=== PATIENT | male | born 1950 | race Caucasian/White ===

== ENCOUNTER 2017-03-27 09:24 | Inpatient (IN) | payer MEDICARE, BC, SELFPAY ==
[2017-03-27] VITALS (8 sets, daily range): BP systolic 93–128; BP diastolic 42–70; PULSE 60–76; RESP 16–18; TEMP -7.7–37.2; O2SAT 94–100; BMI 27.3; BMI 23.7; BMI 23.8
--- NOTE | 2017-03-27 10:07 | PC.NURSE ---
Triage nurse came to get me from room due to pt condition. While triaging, difficult to arouse, moon, BP 68/24. Pt seated in w/c and is difficult to arouse. Accompanied by I presume his /significant other. Pt immediately taken across to ER by Christopher [facility] RN as I call report to Shira DESIGN MANAGER. Aware pt needs immediate medical attention upon arrival.
--- NOTE | 2017-03-27 10:11 | XR_ITS ---
XR chest portable HISTORY: ITS.REASON: WEAKNESS ORDERING PHYSICIAN: Akbar Booker PATIENT AGE: 66 years COMPARISON: 12/02/2016 FINDINGS: Cardiac pacemaker device remains in place. No evidence of CHF.. Old granulomatous disease. Old right-sided rib fractures. No lobar consolidation or collapse. IMPRESSION: No change with no acute finding.
--- NOTE | 2017-03-27 10:11 | CT_ITS ---
CT head/brain wo con HISTORY: Lethargic, weakness ITS.REASON: WEAKNESS ORDERING PHYSICIAN: Akbar Booker PATIENT AGE: 66 years COMPARISON: 03/03/2016 TECHNIQUE: Axial images obtained without contrast. Brain and bone windows reviewed. FINDINGS: There are encephalomalacia changes of the left frontal, anterior temporal, and parietal lobe consistent with an old infarction similar to the previous exam. No midline shift or intracranial hemorrhage is evident. There is dilatation of the left lateral ventricle felt to be related to the generalized volume loss. 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 IMPRESSION: 1. No acute intracranial findings. 2. Postsurgical changes on the left with prior aneurysm clipping and encephalomalacic changes in the left cerebrum as described above
[2017-03-27 10:34] LABS: Basophils % 0.5 % (0.1-2.0); Eosinophils # 0.3 K/mm3 (0.0-0.4); Eosinophils % 3.4 % (0.1-12.0); Hematocrit 27.4 % (42.0-52.0); Hemoglobin 9.1 g/dL (14.1-18.0); Lymphocytes # 1.2 K/mm3 (0.7-4.5); Lymphocytes % 16.3 K/mm3 (10-50); Mean Corpuscular HGB Conc 33.1 g/dL (31.8-35.4); Mean Corpuscular Volume 93.6 fl (80-94); Mean Platelet Volume 7.8 fl (7.4-10.4); Monocytes # 0.5 K/mm3 (0.1-1.0); Monocytes % 7.3 % (1.7-9.3); Neutrophils # 5.3 K/mm3 (1.8-7.8); Neutrophils % 72.4 % (37.0-80.0); Platelet Count 304 K/mm3 (142-424); Red Blood Count 2.92 M/mm3 (4.60-6.20); Red Cell Distribution Width 14.9 % (11.5-17.5); White Blood Count 7.3 K/mm3 (4.8-10.8)
[2017-03-27 10:39] LABS: POC Glucose,Bedside 146 mg/dL
[2017-03-27 11:23] LABS: Alanine Aminotransferase 16 U/L (12-78); Albumin Level 3.4 gm/dL (3.4-5.0); Albumin/Globulin Ratio 0.9 (1.1-1.8); Alkaline Phosphatase 108 U/L (46-116); Anion Gap 12.2 mEq/L (5-15); Bilirubin,Total 0.2 mg/dL (0.2-1.0); Blood Urea Nitrogen 9 mg/dL (7-18); Calcium 8.9 mg/dL (8.5-10.1); Carbon Dioxide 24 mmol/L (21.0-32.0); Chloride 91 mmol/L (98-107); Creatinine Clearance Estimated 71 mL/min (0-300); Estimated Glomerular Filt Rate 67 ml/min (>60); GFR (African American) 81 ML/MIN (>60); Globulin 3.7 gm/dl (1.3-3.2); Glucose 139 mg/dL (74-106); Sodium 123 mmol/L (136-145); Total Protein,Serum 7.1 gm/dL (6.4-8.2)
[2017-03-27 11:24] LABS: Aspartate Amino Transferase 20 U/L (15-37); Potassium 4.2 mmoL/L (3.5-5.1)
[2017-03-27 11:25] LABS: Creatine Kinase 56 U/L (39-308)
--- NOTE | 2017-03-27 11:25 | HMH.EDWEAK ---
ED Disposition Clinical Impression: Hyponatremia, CVA (cerebrovascular accident), Chronic anemia Disposition: Still a Patient Condition on Discharge: Fair Referrals: Vargas Hurt MD [Staff Physician] - - Critical Care Critical Care Time: No Attestation: On 03/27/17, the high probability of a clinically significant, sudden or life threatening deterioration of the following system(s) required my full and direct attention, intervention and personal management. The time I documented below is in addition to time spent performing reported procedures but includes the following listed in this critical care notation. Medical Decision Making - Medical Records Medical records reviewed: Yes: I reviewed the patient's medical records. Vital Signs: 03/27/17 10:21 03/27/17 10:41 Temperature 98.4 F 98.9 F Temperature Source Oral Temporal Artery Scan Pulse Rate [Right Brachial] 67 60 Respiratory Rate 18 18 Blood Pressure [Right Arm] 93/42 106/57 Blood Pressure Mean [Right Arm] 59 73 Blood Pressure Source [Right Arm] Automatic Cuff Blood Pressure Position [Right Arm] Supine 02 Sat by Pulse Oximetry 94 L 99 Oxygen Delivery Method Room Air Room Air - Lab Data Lab Results 03/27/17 10:08: POC Glucose 146 03/27/17 10:20: WBC 7.3, RBC 2.92 L, Hgb 9.1 L, Hct 27.4 L, MCV 93.6, MCH 31.0, MCHC 33.1, RDW 14.9, Plt Count 304, MPV 7.8, Neut % (Auto) 72.4, Lymph % (Auto) 16.3, [place] % (Auto) 7.3, Eos % (Auto) 3.4, Baso % (Auto) 0.5, Neut # (Auto) 5.3, Lymph # (Auto) 1.2, [place] # (Auto) 0.5, Eos # (Auto) 0.3, Baso # (Auto) 0.0 03/27/17 10:20: Sodium 123 L, Potassium 4.2, Chloride 91 L, Carbon Dioxide 24, Anion Gap 12.2, BUN 9, Creatinine 1.10, Estimated Creat Clear 71, Estimated GFR 67, Est GFR ( Amer) 81, Glucose 139 H, Calcium 8.9, Total Bilirubin 0.2, AST 20, ALT 16, Alkaline Phosphatase 108, Total Protein 7.1, Albumin 3.4, Globulin 3.7 H, Albumin/Globulin Ratio 0.9 L, Phenobarbital 18.6 03/27/17 10:20: Total Creatine Kinase 56, CK-MB (CK-2) 0.9, CK-MB (CK-2) Rel Index 1.6, Troponin I < 0.02 03/27/17 11:30: Influenza Type A Ag Negative, Influenza Type B Ag Negative 03/27/17 11:30: Group A Strep Rapid Negative Result diagrams: 03/27/17 10:20 03/27/17 10:20 Orders (Tests/Meds): ED MEDICATIONS Discontinued Medications Generic Name Dose Route Start Last Admin Trade Name Freq PRN Reason Stop Dose Admin Aspirin 324 mg 03/27/17 11:26 03/27/17 11:28 Aspirin 81mg Chewable Tablet PO 03/27/17 11:27 324 mg ONCE ONE Administration Sodium Chloride 1,000 mls @ 999 mls/hr 03/27/17 10:15 03/27/17 10:40 Sod Chloride 0.9% 1000ml Bag IV 03/27/17 11:15 999 mls/hr .Q1H1M CHANG Administration ORDERS Category Date Time Status POC Glucose,Bedside Stat Lab 03/27/17 10:11 Ordered Urinalysis and Microscopic Stat Lab 03/27/17 10:34 Ordered Strep Screen Confirmation Stat Micro 03/27/17 11:30 Received - Radiology Data #1 Image(s): Chest Image Reviewed: Yes I have reviewed radiologist's interpretation Preliminary Findings: Normal/NAD - CT Data CT Scan: Head Time Received: 12:[address] Reviewed: Yes: I have viewed the radiologist's interpretation - ECG Data Tracing #1 Normal sinus rhythm at 60/min versions and the lateral lead which is unchanged from prior EKG on June 09, 2014. I reviewed the case and the EKG with Dr. Smith. He did not believe that he needs futher work up at this point. ECG initial impression date: 03/27/17 - Mirza Inquiry Pt receiving controlled substance: No Mirza was queried for this patient: No Medical Decision Making Narrative: I discussed Babak EKG with Dr. Smith who did not feel that there is an acute finding. Looks stable from the previous one was done in 2014. Upon review of his labs his sodium was 123 and hemoglobin is 9. He will need to be admitted for IV fluids normal saline. [facility] Contacted
[2017-03-27 11:26] LABS: CKMB Relative Index 1.6 U/L (0-4.0); Creatine Kinase MB 0.9 mg/ml (0.0-3.6); Troponin I < 0.02 ng/ml (0.00-0.06)
--- NOTE | 2017-03-27 11:33 | ED_ITS ---
ED Disposition Clinical Impression: Hyponatremia, CVA (cerebrovascular accident), Chronic anemia Disposition: Still a Patient Condition on Discharge: Fair Referrals: Vargas Hurt MD [Staff Physician] - - Critical Care Critical Care Time: No Attestation: On 03/27/17, the high probability of a clinically significant, sudden or life threatening deterioration of the following system(s) required my full and direct attention, intervention and personal management. The time I documented below is in addition to time spent performing reported procedures but includes the following listed in this critical care notation. Medical Decision Making - Medical Records Medical records reviewed: Yes: I reviewed the patient's medical records. Vital Signs: 03/27/17 10:21 03/27/17 10:41 Temperature 98.4 F 98.9 F Temperature Source Oral Temporal Artery Scan Pulse Rate [Right Brachial] 67 60 Respiratory Rate 18 18 Blood Pressure [Right Arm] 93/42 106/57 Blood Pressure Mean [Right Arm] 59 73 Blood Pressure Source [Right Arm] Automatic Cuff Blood Pressure Position [Right Arm] Supine 02 Sat by Pulse Oximetry 94 L 99 Oxygen Delivery Method Room Air Room Air - Lab Data Lab Results 03/27/17 10:08: POC Glucose 146 03/27/17 10:20: WBC 7.3, RBC 2.92 L, Hgb 9.1 L, Hct 27.4 L, MCV 93.6, MCH 31.0, MCHC 33.1, RDW 14.9, Plt Count 304, MPV 7.8, Neut % (Auto) 72.4, Lymph % (Auto) 16.3, [place] % (Auto) 7.3, Eos % (Auto) 3.4, Baso % (Auto) 0.5, Neut # (Auto) 5.3 , Lymph # (Auto) 1.2, [place] # (Auto) 0.5, Eos # (Auto) 0.3, Baso # (Auto) 0.0 03/27/17 10:20: Sodium 123 L, Potassium 4.2, Chloride 91 L, Carbon Dioxide 24, Anion Gap 12.2, BUN 9, Creatinine 1.10, Estimated Creat Clear 71, Estimated GFR 67, Est GFR ( Amer) 81, Glucose 139 H, Calcium 8.9, Total Bilirubin 0.2, AST 20, ALT 16, Alkaline Phosphatase 108, Total Protein 7.1, Albumin 3.4, Globulin 3.7 H, Albumin/Globulin Ratio 0.9 L, Phenobarbital 18.6 03/27/17 10:20: Total Creatine Kinase 56, CK-MB (CK-2) 0.9, CK-MB (CK-2) Rel Index 1.6, Troponin I < 0.02 03/27/17 11:30: Influenza Type A Ag Negative, Influenza Type B Ag Negative 03/27/17 11:30: Group A Strep Rapid Negative Result diagrams: 03/27/17 10:20 03/27/17 10:20 Orders (Tests/Meds): ED MEDICATIONS Discontinued Medications Generic Name Dose Route Start Last Admin Trade Name Freq PRN Reason Stop Dose Admin Aspirin 324 mg 03/27/17 11:26 03/27/17 11:28 Aspirin 81mg Chewable Tablet PO 03/27/17 11:27 324 mg ONCE ONE Administration Sodium Chloride 1,000 mls @ 999 mls/hr 03/27/17 10:15 03/27/17 10:40 Sod Chloride 0.9% 1000ml Bag IV 03/27/17 11:15 999 mls/hr .Q1H1M CHANG Administration ORDERS Category Date Time Status POC Glucose,Bedside Stat Lab 03/27/17 10:11 Ordered Urinalysis and Microscopic Stat Lab 03/27/17 10:34 Ordered Strep Screen Confirmation Stat Micro 03/27/17 11:30 Received - Radiology Data #1 Image(s): Chest Image Reviewed: Yes I have reviewed radiologist's interpretation Preliminary Findings: Normal/NAD - CT Data CT Scan: Head Time Received: 12:[address] Reviewed: Yes: I have viewed the radiologist's interpretation - ECG Data Tracing #1 Normal sinus rhythm at 60/min versions and the lateral lead which is unchanged from prior EKG on
[2017-03-27 11:48] LABS: Strep Scrn Group A (Rapid) Negative (Negative)
--- NOTE | 2017-03-27 12:43 | PC.NURSE ---
CALLED AND SPOKE WITH BED CONTROL. WAS ADVISED THAT SHE WILL CALL US BACK WHEN SHE KNOWS SOMETHING.
--- NOTE | 2017-03-27 12:50 | PC.NURSE ---
Spoke to Emelia and Maria E at the [facility] in [place]. No beds available at this time.
--- NOTE | 2017-03-27 13:09 | PC.NURSE ---
co states no bed availability at this time.
--- NOTE | 2017-03-27 13:47 | PC.NURSE ---
REPORT GIVEN TO GIOVANNA LANDAVERDE. ASSISTED UP TO 2ND FLOOR PER [facility].
[2017-03-27 14:37] LABS: Troponin I < 0.02 ng/ml (0.00-0.06)
--- NOTE | 2017-03-27 15:34 | HMH.HP ---
*Admission Date: 03/27/17 <Jen Bennett 03/27/17 16:59> *Chief complaint: weakness <Jen Bennett 03/27/17 16:59> *History of present illness: 66 years old white male , he is status post a on the right hemiparesis, in addition to the pacemaker placement. The caregiver went to check on him at this morning and he was complaining of chills and weakness. He got dressed and went to the urgent treatment care he was directed to the ED for evalution. In the ED he was alert oriented ?3 provided history. He complained of body aches and chills, he thinks he has the flu. He denied having chest pain palpitations shortness of breath nausea or vomiting. <Jen Bennett 03/27/17 16:59> [facility] History Medical History: Reports:: Atherosclerotic Heart Disease, Cancer, Cardiomyopathy, Congestive Heart Failure, Chronic Obstructive Pulmonary Disease (COPD), Coronary Artery Disease, Cerebrovascular Accident, Gastroesophageal Reflux Disease(GERD), Gastrointestinal Bleed, Hepatitis (C), Hyperlipidemia, Hypertension, Internal Pacemaker, Lung Disease, Kidney Stones, Myocardial Infarction, Renal Insufficiency, Seizures Denies:: Diabetes Mellitus Type 1, Diabetes Mellitus Type 2 <Jen Bennett 03/27/17 18:02> Other Surgeries: Yes: Appendectomy, Pacemaker <Jen Bennett 03/27/17 16:59> Comment: lung procedure; colon surgery for colon cancer <Jen Bennett 03/27/17 18:02> - *Social History Educational Level: Completed High School <Jen Bennett 03/27/17 16:59> Smoking Status: Former smoker <Jen Bennett 03/27/17 16:59> Smoking End Date: when 46 years old <Bennett,Jen 03/27/17 16:59> Alcohol Intake: never <Bennett,Jen 03/27/17 16:59> Occupational Status: disabled <Bennett,Jen 03/27/17 16:59> Household Members: caregiver <SabrinaJen 03/27/17 16:59> - Psychiatric History Expresses thoughts of harming self/others: None <Jen Bennett 03/27/17 16:59> Suicide Plan Description: No Plan <Jen Bennett 03/27/17 16:59> *Family Hx:: Diabetes <Jen Bennett 03/27/17 18:02> Review of Systems - Constitutional Denies anorexia, Denies body ache(s), Denies chills <Jen Bennett 03/27/17 18:02> - ENT Denies sore throat <Jen Bennett 03/27/17 18:02> - *Cardiovascular Denies chest pain, Denies shortness of breath, Denies leg swelling <Jen Bennett 03/27/17 18:02> - *Respiratory Denies chest congestion, Denies cough, Denies shortness of breath <Jen Bennett 03/27/17 18:02> - *Gastrointestinal Reports constipation, Denies abdominal pain, Denies nausea, Denies vomiting <Jen Bennett 03/27/17 18:02> - *Musculoskeletal Reports abnormal walking (uses a cane to walk;right hemiplegia) <Jen Bennett 03/27/17 18:02> - *Neurologic Reports abnormal walking, Reports abnormal speech, Denies frequent falls, Denies headache(s) <Jen Bennett 03/27/17 18:02> Meds Home Medications Medication Instructions Recorded Confirmed Type Ascorbic Acid [Vitamin C] 500 mg PO DAILY 03/27/17 03/27/17 History Aspirin [Aspir 81] 81 mg PO DAILY 03/27/17 03/27/17 History Carvedilol [Carvedilol 25mg Tab] 0.5 tab PO DAILY 03/27/17 03/27/17 History Cholecalciferol (Vitamin D3) 1,000 unit PO DAILY 03/27/17 03/27/17 History [Vitamin D3 1,000 Unit Cap] Ferrous Gluconate [Ferrous 324 mg PO DAILY 03/27/17 03/27/17 History Gluconate 324mg Tab] Gabapentin [Gabapentin 400mg Cap] 1 cap PO DIRECTED 03/27/17 03/27/17 History Lisinopril [Lisinopril 10mg Tab] 0.5 tab PO DAILY 03/27/17 03/27/17 History OXcarbazepine [Oxtellar Xr] 450 mg PO DAILY 03/27/17 03/27/17 History PHENobarbital [Phenobarbital] 64.8 mg PO DAILY 03/27/17 03/27/17 History Pantoprazole Sodium [Pantoprazole 40 mg PO DAILY 03/27/17 03/27/17 History 20mg Tab] Simvastatin 40 mg PO DAILY 03/27/17 03/27/17 History Zonisamide 300 mg PO HS 03/27/17 03/27/17 History <Vargas Hurt - 03/27/17 19:18> Allergies Allergy/AdvReac
--- NOTE | 2017-03-27 16:59 | P.HP_ITS ---
*Admission Date: 03/27/17 <Jen Bennett 03/27/17 16:59> *Chief complaint: weakness <Jen Bennett 03/27/17 16:59> *History of present illness: 66 years old white male , he is status post a on the right hemiparesis, in addition to the pacemaker placement. The caregiver went to check on him at this morning and he was complaining of chills and weakness. He got dressed and went to the urgent treatment care he was directed to the ED for evalution. In the ED he was alert oriented ?3 provided history. He complained of body aches and chills, he thinks he has the flu. He denied having chest pain palpitations shortness of breath nausea or vomiting. <Jen Benentt 03/27/17 16:59> [facility] History Medical History: Reports:: Atherosclerotic Heart Disease, Cancer, Cardiomyopathy , Congestive Heart Failure, Chronic Obstructive Pulmonary Disease (COPD), Coronary Artery Disease, Cerebrovascular Accident, Gastroesophageal Reflux Disease(GERD), Gastrointestinal Bleed, Hepatitis (C), Hyperlipidemia, Hypertension, Internal Pacemaker, Lung Disease, Kidney Stones, Myocardial Infarction, Renal Insufficiency, Seizures Denies:: Diabetes Mellitus Type 1, Diabetes Mellitus Type 2 <Jen Bennett 03/27/17 18:02> Other Surgeries: Yes: Appendectomy, Pacemaker <Jen Bennett 03/27/17 16:59> Comment: lung procedure; colon surgery for colon cancer <Jen Bennett 03/27 18:02> - *Social History Educational Level: Completed High School <Jen Bennett 03/27/17 16:59> Smoking Status: Former smoker <Jen Bennett 03/27/17 16:59> Smoking End Date: when 46 years old <Bennett,Jen 03/27/17 16:59> Alcohol Intake: never <Bennett,Jen 03/27/17 16:59> Occupational Status: disabled <Bennett,Jen 03/27/17 16:59> Household Members: caregiver <SabrinaJen 03/27/17 16:59> - Psychiatric History Expresses thoughts of harming self/others: None <Jen Bennett 03/27/17 16: 59> Suicide Plan Description: No Plan <Jen Bennett 03/27/17 16:59> *Family Hx:: Diabetes <Jen Bennett 03/27/17 18:02> Review of Systems - Constitutional Denies anorexia, Denies body ache(s), Denies chills <Jen Bennett 03/27/17 18:02> - ENT Denies sore throat <Jen Bennett 03/27/17 18:02> - *Cardiovascular Denies chest pain, Denies shortness of breath, Denies leg swelling <Jen Bennett 03/27/17 18:02> - *Respiratory Denies chest congestion, Denies cough, Denies shortness of breath <Jen Bennett 03/27/17 18:02> - *Gastrointestinal Reports constipation, Denies abdominal pain, Denies nausea, Denies vomiting < Jen Bennett 03/27/17 18:02> - *Musculoskeletal Reports abnormal walking (uses a cane to walk;right hemiplegia) <Jen Bennett 03/27/17 18:02> - *Neurologic Reports abnormal walking, Reports abnormal speech, Denies frequent falls, Denies headache(s) <Jen Bennett 03/27/17 18:02> Meds Home Medications Medication Instructions Recorded Confirmed Type Ascorbic Acid [Vitamin C] 500 mg PO DAILY 03/27/17 03/27/17 History Aspirin [Aspir 81] 81 mg PO DAILY 03/27/17 03/27/17 History Carvedilol [Carvedilol 25mg Tab] 0.5 tab PO DAILY 03/27/17 03/27/17 History Cholecalciferol (Vitamin D3) 1,000 unit PO DAILY 03/27/17 03/27/17 History [Vitamin D3 1,000 Unit Cap] Ferrous Gluconate [Ferrous 324 mg PO DAILY 03/27/17 03/27/17 History Gluconate 324mg Tab] Gabapentin [Gabapentin 400mg Cap] 1 cap PO DIRECTED 03/27/17 03/27/17 History Lisinopril [Lisinopril 10mg Tab] 0.5 tab PO DAILY 03/27/17 03/27/17 History OXcarb
[2017-03-27 18:43] LABS: Adenovirus,PCR Not Detected (NotDetected); Bordetella Pertussis Not Detected (NotDetected); Chlamydophila Pneumoniae, PCR Not Detected (NotDetected); Coronavirus 229E Not Detected (NotDetected); Coronavirus NL63 Not Detected (NotDetected); Coronavirus OC43 Not Detected (NotDetected); Coronovirus HKU1,PCR Not Detected (NotDetected); Human Metapneumovirus Not Detected (NotDetected); Influenza A, PCR Not Detected (NotDetected); Influenza AH1, 2009 Not Detected (NotDetected); Influenza AH1, PCR Not Detected (NotDetected); Influenza AH3,PCR Not Detected (NotDetected); Influenza B, PCR Not Detected (NotDetected); Mycoplasma Pneumoniae, PCR Not Detected (NotDected); Parainfluenza 1, PCR Not Detected (NotDetected); Parainfluenza 2, PCR Not Detected (NotDetected); Parainfluenza 3, PCR Not Detected (NotDetected); Parainfluenza 4, PCR Not Detected (NotDetected); Respiratory Syncytial Virus Not Detected (NotDetected); Rhinovirus/Enterovirus Not Detected (NotDetected)
[2017-03-27 19:26] LABS: Troponin I < 0.02 ng/ml (0.00-0.06)
[2017-03-28] VITALS (23 sets, daily range): BP systolic 96–145; BP diastolic 36–60; PULSE 61–76; RESP 16–20; TEMP 36–36.7; O2SAT 96–99; BMI 23.8
--- NOTE | 2017-03-28 04:41 | PC.NURSE ---
PT HAS SLEPT. NO COMPLAINTS. RESPIRATIONS EVEN AND UNLABORED.
[2017-03-28 06:56] LABS: Anion Gap 13.6 mEq/L (5-15); Blood Urea Nitrogen 9 mg/dL (7-18); Carbon Dioxide 21 mmol/L (21.0-32.0); Chloride 100 mmol/L (98-107); Creatinine Clearance Estimated 70 mL/min (0-300); Estimated Glomerular Filt Rate 75 ml/min (>60); GFR (African American) 90 ML/MIN (>60); Glucose 106 mg/dL (74-106); Potassium 3.6 mmoL/L (3.5-5.1); Sodium 131 mmol/L (136-145)
[2017-03-28 06:59] LABS: Basophils % 0.4 % (0.1-2.0); Eosinophils # 0.1 K/mm3 (0.0-0.4); Eosinophils % 1.5 % (0.1-12.0); Lymphocytes % 16.6 K/mm3 (10-50); Mean Corpuscular HGB Conc 33.3 g/dL (31.8-35.4); Mean Corpuscular Hemoglobin 31.6 pg (27.0-31.2); Mean Corpuscular Volume 94.8 fl (80-94); Mean Platelet Volume 7.6 fl (7.4-10.4); Monocytes # 0.4 K/mm3 (0.1-1.0); Monocytes % 6.7 % (1.7-9.3); Neutrophils # 4.6 K/mm3 (1.8-7.8); Neutrophils % 74.8 % (37.0-80.0); Platelet Count 244 K/mm3 (142-424); Red Blood Count 2.48 M/mm3 (4.60-6.20); Red Cell Distribution Width 15.2 % (11.5-17.5); White Blood Count 6.1 K/mm3 (4.8-10.8)
[2017-03-28 07:04] LABS: Hematocrit 23.5 % (42.0-52.0); Hemoglobin 7.8 g/dL (14.1-18.0)
--- NOTE | 2017-03-28 07:07 | P.CONPHA_ITS ---
[facility] Pharmacy VTE Monitoring - Patient Demographics Admission date: 03/27/17 Report Date: 03/28/17 Time: 07:07 Allergies/Adverse Reactions: Patient Allergies dopamine [DOPAMINE] Allergy (Mild, Verified 03/27/17 10:57) Height: 1.7 m Weight: 69.031 kg Patient Problems: Current Active Problems Hyponatremia (Acute) CVA (cerebrovascular accident) (Acute) Chronic anemia (Acute) Weakness (Acute) Hepatitis C (Chronic) History of GI bleed (Chronic) AVM (arteriovenous malformation) (Chronic) CAD (coronary artery disease) (Chronic) History of seizure (Chronic) History of stroke (Chronic) Right hemiplegia (Chronic) Cardiomyopathy (Acute) - VTE Risk Labs: VTE Related Lab Results Hgb 7.8 g/dL (14.1-18.0) L* 03/28/17 06:20 Hct 23.5 % (42.0-52.0) L* 03/28/17 06:20 Plt Count 244 K/mm3 (142-424) 03/28/17 06:20 BUN 9 mg/dL (7-18) 03/28/17 06:20 Creatinine 1.00 mg/dL (0.70-1.30) 03/28/17 06:20 Estimated Creat Clear 70 mL/min (0-300) 03/28/17 06:20 Was VTE Risk Assessment Performed: Yes VTE Score: 3 VTE Risk Level: Low Risk - Prophylaxis VTE Prophylaxis Ordered?: Yes Types of VTE Prophylaxis: TEDS Knee High Location of Applied Device: Bilateral Lower Extremeties - VTE Diagnosis Confirmed Treatment or plan recommended: Continue Current Treatment
--- NOTE | 2017-03-28 09:03 | HMH.ACPN2 ---
<Jen Bennett - Last Filed: 03/28/17 09:03> Internal Medicine - PN: Subj *Date: 03/28/17 *Time: 09:03 Interval history: slept little due to blood draws; denies CP, SOB, Abdominal pain, nausea and vomiting. Ate all of his breakfast. Exam Vital signs and Labs for Last 24 Hours: Temp Pulse Resp BP Pulse Ox 97.2 F L 75 20 145/58 97 03/28/17 08:05 03/28/17 08:05 03/28/17 08:05 03/28/17 08:05 03/28/17 08:05 Laboratory Results - last 24 hr 03/27/17 14:06: Troponin I < 0.02 03/27/17 18:36: Chlamy pneumoniae PCR Not detected, Adenovirus (PCR) Not detected, B.parapertussis DNA PCR Not detected, Coronavirus OC43 (PCR) Not detected, Coronavirus HKU1 (PCR) Not detected, Coronavirus 229E (PCR) Not detected, Coronavirus NL63 (PCR) Not detected, Human Metapneumovir PCR Not detected, Influenza A (H1) PCR Not detected, Influ A (H1N1/09) PCR Not detected, Influenza A (H3) PCR Not detected, Influenza Type A (PCR) Not detected, Influenza Type B (PCR) Not detected, M. pneumoniae (PCR) Not detected, Parainfluenza 1 (PCR) Not detected, Parainfluenza 2 (PCR) Not detected, Parainfluenza 3 (PCR) Not detected, Parainfluenza 4 (PCR) Not detected, RSV (PCR) Not detected, Entero/Rhino (PCR) Not detected 03/27/17 18:40: Troponin I < 0.02 03/28/17 06:20: WBC 6.1, RBC 2.48 L, Hgb 7.8 L*, Hct 23.5 L*, MCV 94.8 H, MCH 31.6 H, MCHC 33.3, RDW 15.2, Plt Count 244, MPV 7.6, Neut % (Auto) 74.8, Lymph % (Auto) 16.6, [place] % (Auto) 6.7, Eos % (Auto) 1.5, Baso % (Auto) 0.4, Neut # (Auto) 4.6, Lymph # (Auto) 1.0, [place] # (Auto) 0.4, Eos # (Auto) 0.1, Baso # (Auto) 0.0 03/28/17 06:20: Sodium 131 L, Potassium 3.6, Chloride 100, Carbon Dioxide 21, Anion Gap 13.6, BUN 9, Creatinine 1.00, Estimated Creat Clear 70, Estimated GFR 75, Est GFR ( Amer) 90, Glucose 106 D 03/28/17 08:00: Blood Type O Positive, Antibody Screen Negative, Crossmatch (AHG) See Detail I & O for Last 24 hours: Intake & Output 03/25/17 03/26/17 03/27/17 03/28/17 11:59 11:59 11:59 11:59 Intake Total 2839 / 2839 Output Total 950 / 950 Balance 1889 / 1889 Weight 152 lb 3 oz - Constitutional Comments: NAD - *Routine Respiratory Exam Comments: bilateral wheeze - *Routine Cardiovascular Exam Present: RRR - *Routine Abdominal Exam Present: soft, normoactive bowel sounds. Absent: tenderness, distended - *Routine Extremities Exam Absent: edema, calf tenderness - *Routine Neurological Exam Present: alert, oriented X3 slow thought process Assessment and Plan (1) Hyponatremia Current visit: Yes Status: Acute Category: Medical Code(s): E87.1 - Hypo-osmolality and hyponatremia (2) Weakness Current visit: Yes Status: Acute Category: Medical Code(s): R53.1 - Weakness (3) Chronic anemia Current visit: Yes Status: Acute Category: Medical Code(s): D64.9 - Anemia, unspecified (4) Hepatitis C Current visit: Yes Status: Chronic Category: Medical Code(s): B19.20 - Unspecified viral hepatitis C without hepatic coma (5) History of GI bleed Current visit: Yes Status: Chronic Category: Medical Code(s): Z87.19 - Personal history of other diseases of the digestive system (6) AVM (arteriovenous malformation) Current visit: Yes Status: Chronic Category: Medical Code(s): Q27.30 - Arteriovenous malformation, site unspecified (7) CAD (coronary artery disease) Current visit: Yes Status: Chronic Category: Medical Code(s): I25.10 - Atherosclerotic heart disease of [place] coronary artery without angina pectoris (8) History of seizure Current visit: Yes Status: Chronic Category: Medical Code(s): Z87.898 - Personal history of other specified conditions (9) History of stroke Current visit: Yes Status: Chronic Category: Medical Code(s): Z86.73 - Personal history of transient ischemic attack (TIA), and cerebral infarction without residual deficits (10) Right hemiplegia Current visit: Yes
--- NOTE | 2017-03-28 09:06 | P.PN_ITS ---
<Jen Bennett - Last Filed: 03/28/17 09:03> Internal Medicine - PN: Subj *Date: 03/28/17 *Time: 09:03 Interval history: slept little due to blood draws; denies CP, SOB, Abdominal pain, nausea and vomiting. Ate all of his breakfast. Exam Vital signs and Labs for Last 24 Hours: Temp Pulse Resp BP Pulse Ox 97.2 F L 75 20 145/58 97 03/28/17 08:05 03/28/17 08:05 03/28/17 08:05 03/28/17 08:05 03/28/17 08:05 Laboratory Results - last 24 hr 03/27/17 14:06: Troponin I < 0.02 03/27/17 18:36: Chlamy pneumoniae PCR Not detected, Adenovirus (PCR) Not detected, B.parapertussis DNA PCR Not detected, Coronavirus OC43 (PCR) Not detected, Coronavirus HKU1 (PCR) Not detected, Coronavirus 229E (PCR) Not detected, Coronavirus NL63 (PCR) Not detected, Human Metapneumovir PCR Not detected, Influenza A (H1) PCR Not detected, Influ A (H1N1/09) PCR Not detected , Influenza A (H3) PCR Not detected, Influenza Type A (PCR) Not detected, Influenza Type B (PCR) Not detected, M. pneumoniae (PCR) Not detected, Parainfluenza 1 (PCR) Not detected, Parainfluenza 2 (PCR) Not detected, Parainfluenza 3 (PCR) Not detected, Parainfluenza 4 (PCR) Not detected, RSV (PCR ) Not detected, Entero/Rhino (PCR) Not detected 03/27/17 18:40: Troponin I < 0.02 03/28/17 06:20: WBC 6.1, RBC 2.48 L, Hgb 7.8 L*, Hct 23.5 L*, MCV 94.8 H, MCH 31.6 H, MCHC 33.3, RDW 15.2, Plt Count 244, MPV 7.6, Neut % (Auto) 74.8, Lymph % (Auto) 16.6, [place] % (Auto) 6.7, Eos % (Auto) 1.5, Baso % (Auto) 0.4, Neut # ( Auto) 4.6, Lymph # (Auto) 1.0, [place] # (Auto) 0.4, Eos # (Auto) 0.1, Baso # (Auto ) 0.0 03/28/17 06:20: Sodium 131 L, Potassium 3.6, Chloride 100, Carbon Dioxide 21, Anion Gap 13.6, BUN 9, Creatinine 1.00, Estimated Creat Clear 70, Estimated GFR 75, Est GFR ( Amer) 90, Glucose 106 D 03/28/17 08:00: Blood Type O Positive, Antibody Screen Negative, Crossmatch (AHG ) See Detail I & O for Last 24 hours: Intake & Output 03/25/17 03/26/17 03/27/17 03/28/17 11:59 11:59 11:59 11:59 Intake Total 2839 / 2839 Output Total 950 / 950 Balance 1889 / 1889 Weight 152 lb 3 oz - Constitutional Comments: NAD - *Routine Respiratory Exam Comments: bilateral wheeze - *Routine Cardiovascular Exam Present: RRR - *Routine Abdominal Exam Present: soft, normoactive bowel sounds. Absent: tenderness, distended - *Routine Extremities Exam Absent: edema, calf tenderness - *Routine Neurological Exam Present: alert, oriented X3 slow thought process Assessment and Plan (1) Hyponatremia Current visit: Yes Status: Acute Category: Medical Code(s): E87.1 - Hypo- osmolality and hyponatremia (2) Weakness Current visit: Yes Status: Acute Category: Medical Code(s): R53.1 - Weakness (3) Chronic anemia Current visit: Yes Status: Acute Category: Medical Code(s): D64.9 - Anemia , unspecified (4) Hepatitis C Current visit: Yes Status: Chronic Category: Medical Code(s): B19.20 - Unspecified viral hepatitis C without hepatic coma (5) History of GI bleed Current visit: Yes Status: Chronic Category: Medical Code(s): Z87.19 - Personal history of other diseases of the digestive system (6) AVM (arteriovenous malformation) Current visit: Yes Status: Chronic Category: Medical Code(s): Q27.30 - Arteriovenous malformation, site unspecified (7) CAD (coronary artery disease) Current visit: Yes Status: Chronic Category: Med
[2017-03-28 09:19] LABS: INR 1.03 (0.9-1.1); Prothrombin Time 11.1 seconds (9.4-11.8)
--- NOTE | 2017-03-28 10:47 | PC.NURSE ---
PT IS RESTING IN BED GETTING BLOOD TRANSFUSION AT THIS TIME. PT [facility] AND HAS NOT HAD ANY PROBLEMS. PT WAS ABLE TO SIGN HIS OWN CONSENT. PT'S SPEECH IS DELAYED BUT HE HAS ANSWERED ALL QUESTIONS APPROPRIATELY. ALERT AND ORIENTED X3. LUNG SOUNDS CLEAR, BOWEL SOUNDS NORMAL. WILL CONTINUE TO MONITOR.
[2017-03-28 15:50] LABS: Hematocrit 30.6 % (42.0-52.0)
[2017-03-28 16:42] LABS: Hemoglobin 10.3 g/dL (14.1-18.0)
--- NOTE | 2017-03-28 17:04 | HMH.GSCON ---
*Admission Date: 03/27/17 *Chief complaint: Weakness *History of present illness: Patient is a 66-year-old white male who is a and has received previous medical care from the [facility] and [facility]. 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 He also has an apparent history of hepatitis C. He is a history of apparent chronic iron deficiency anemia and has previously had an EGD performed by Dr. Carbone 2 years ago for anemia. He had presented to the urgent treatment center with chills, weakness, and body aches. He was admitted. He was noted to have appreciable anemia with a hemoglobin of 7.8 and hematocrit of 23.5%. Surgery was consulted. It is unclear when the patient had any prior colonoscopy. Review of Systems - Review of Systems Review of systems:: unable to obtain - *Neurologic Reports abnormal walking, Reports abnormal speech, Denies frequent falls, Denies headache(s) [facility] History I have reviewed the patient's past medical history: Yes Medical History: Reports:: Atherosclerotic Heart Disease, Cancer, Cardiomyopathy, Congestive Heart Failure, Chronic Obstructive Pulmonary Disease (COPD), Coronary Artery Disease, Cerebrovascular Accident, Gastroesophageal Reflux Disease(GERD), Gastrointestinal Bleed, Hepatitis (C), Hyperlipidemia, Hypertension, Internal Pacemaker, Lung Disease, Kidney Stones, Myocardial Infarction, Renal Insufficiency, Seizures Denies:: Diabetes Mellitus Type 1, Diabetes Mellitus Type 2 Other Surgeries: Yes: Appendectomy, Pacemaker - *Social History Educational Level: Completed High School Smoking Status: Former smoker Smoking End Date: when 46 years old Alcohol Intake: never Occupational Status: disabled Household Members: caregiver - Psychiatric History Expresses thoughts of harming self/others: None Suicide Plan Description: No Plan *Family Hx:: Diabetes Meds Home Medications Medication Instructions Recorded Confirmed Type Ascorbic Acid [Vitamin C] 500 mg PO DAILY 03/27/17 03/27/17 History Aspirin [Aspir 81] 81 mg PO DAILY 03/27/17 03/27/17 History Carvedilol [Carvedilol 25mg Tab] 12.5 mg PO DAILY 03/27/17 03/28/17 History Cholecalciferol (Vitamin D3) 1,000 unit PO DAILY 03/27/17 03/27/17 History [Vitamin D3 1,000 Unit Cap] Ferrous Gluconate [Ferrous 324 mg PO DAILY 03/27/17 03/27/17 History Gluconate 324mg Tab] Gabapentin [Gabapentin 400mg Cap] 400 mg PO BID 03/27/17 03/28/17 History Lisinopril [Lisinopril 10mg Tab] 5 mg PO DAILY 03/27/17 03/28/17 History PHENobarbital [Phenobarbital] 64.8 mg PO DAILY 03/27/17 03/27/17 History Pantoprazole Sodium [Pantoprazole 40 mg PO DAILY 03/27/17 03/27/17 History 20mg Tab] Simvastatin 20 mg PO HS 03/27/17 03/28/17 History Zonisamide 300 mg PO HS 03/27/17 03/27/17 History OXcarbazepine [Trileptal] 450 mg PO BID 03/28/17 03/28/17 History Allergies Allergy/AdvReac Type Severity Reaction Status Date / Time dopamine [DOPAMINE] Allergy Mild Verified 03/27/17 10:57 Exam Vital signs and Labs for Last 24 Hours: Temp Pulse Resp BP Pulse Ox 98.0 F 63 16 113/48 99 03/28/17 15:35 03/28/17 15:35 03/28/17 15:35 03/28/17 15:35 03/28/17 15:35 Laboratory Results - last 24 hr 03/27/17 18:36: Chlamy pneumoniae PCR Not detected, Adenovirus (PCR) Not detected, B.parapertussis DNA PCR Not detected, Coronavirus OC43 (PCR) Not detected, Coronavirus HKU1 (PCR) Not detected, Coronavirus 229E (PCR) Not detected, Coronavirus NL63 (PCR) Not detected, Human Metapneumovir PCR Not detected, Influenza A (H1) PCR Not detected, Influ A (H1N1/09) PCR Not detected, Influenza A (H3) PCR Not detected, Influenza Type A (PCR) Not detected, Influenza Type B (PCR) Not detected, M. pneumoniae (PCR) Not detected, Parainfluenza 1 (PCR) Not detected, Parainfluenza 2 (PCR) Not detected, Parainfluenza 3 (PCR) Not detect
--- NOTE | 2017-03-28 17:11 | P.CONS_ITS ---
*Admission Date: 03/27/17 *Chief complaint: Weakness *History of present illness: Patient is a 66-year-old white male who is a and has received previous medical care from the [facility] and [facility]. 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 He also has an apparent history of hepatitis C. He is a history of apparent chronic iron deficiency anemia and has previously had an EGD performed by Dr. Carbone 2 years ago for anemia. He had presented to the urgent treatment center with chills, weakness, and body aches. He was admitted. He was noted to have appreciable anemia with a hemoglobin of 7.8 and hematocrit of 23.5%. Surgery was consulted. It is unclear when the patient had any prior colonoscopy. Review of Systems - Review of Systems Review of systems:: unable to obtain - *Neurologic Reports abnormal walking, Reports abnormal speech, Denies frequent falls, Denies headache(s) [facility] History I have reviewed the patient's past medical history: Yes Medical History: Reports:: Atherosclerotic Heart Disease, Cancer, Cardiomyopathy , Congestive Heart Failure, Chronic Obstructive Pulmonary Disease (COPD), Coronary Artery Disease, Cerebrovascular Accident, Gastroesophageal Reflux Disease(GERD), Gastrointestinal Bleed, Hepatitis (C), Hyperlipidemia, Hypertension, Internal Pacemaker, Lung Disease, Kidney Stones, Myocardial Infarction, Renal Insufficiency, Seizures Denies:: Diabetes Mellitus Type 1, Diabetes Mellitus Type 2 Other Surgeries: Yes: Appendectomy, Pacemaker - *Social History Educational Level: Completed High School Smoking Status: Former smoker Smoking End Date: when 46 years old Alcohol Intake: never Occupational Status: disabled Household Members: caregiver - Psychiatric History Expresses thoughts of harming self/others: None Suicide Plan Description: No Plan *Family Hx:: Diabetes Meds Home Medications Medication Instructions Recorded Confirmed Type Ascorbic Acid [Vitamin C] 500 mg PO DAILY 03/27/17 03/27/17 History Aspirin [Aspir 81] 81 mg PO DAILY 03/27/17 03/27/17 History Carvedilol [Carvedilol 25mg Tab] 12.5 mg PO DAILY 03/27/17 03/28/17 History Cholecalciferol (Vitamin D3) 1,000 unit PO DAILY 03/27/17 03/27/17 History [Vitamin D3 1,000 Unit Cap] Ferrous Gluconate [Ferrous 324 mg PO DAILY 03/27/17 03/27/17 History Gluconate 324mg Tab] Gabapentin [Gabapentin 400mg Cap] 400 mg PO BID 03/27/17 03/28/17 History Lisinopril [Lisinopril 10mg Tab] 5 mg PO DAILY 03/27/17 03/28/17 History PHENobarbital [Phenobarbital] 64.8 mg PO DAILY 03/27/17 03/27/17 History Pantoprazole Sodium [Pantoprazole 40 mg PO DAILY 03/27/17 03/27/17 History 20mg Tab] Simvastatin 20 mg PO HS 03/27/17 03/28/17 History Zonisamide 300 mg PO HS 03/27/17 03/27/17 History OXcarbazepine [Trileptal] 450 mg PO BID 03/28/17 03/28/17 History Allergies Allergy/AdvReac Type Severity Reaction Status Date / Time dopamine [DOPAMINE] Allergy Mild Verified 03/27/17 10:57 Exam Vital signs and Labs for Last 24 Hours: Temp Pulse Resp BP Pulse Ox 98.0 F 63 16 113/48 99 03/28/17 15:35 03/28/17 15:35 03/28/17 15:35 03/28/17 15:35 03/28/17 15:35 Laboratory Results - last 24 hr 03/27/17 18:36: Chlamy pneumoniae PCR Not detected, Adenovirus (PCR) Not detected, B.parapertussis DNA PCR
--- NOTE | 2017-03-28 19:15 | PC.NURSE ---
PT FULL CODE. REPORT RECEIVED FROM ABIDA
--- NOTE | 2017-03-28 19:27 | SW/DCPLANNER ---
Addendum entered by Rosalva Zimmerman 03/29/17 17:35: Daughter has returned phone call today and stated that the plan is for patient to discharge to home with his . I informed patient that it may be best to have someone stay with family for a couple days once discharged and daughter stated that if the hospital would provide that then that can happen and if not then it would happen. Daughter stated that patient is very stubborn and they have tried to move parents to her house in [place] and they will not allow this...Plan is for patient to discharge home tomorrow pending no setbacks. Original Note: Attempted to contact daughter this evening regarding discharge plans. Voice message has been left for daughter with no return phone call. I will follow up with patient and daughter again tomorrow. Nurse (Greta Alexander) stated that no family has been present today.
--- NOTE | 2017-03-28 19:32 | PC.NURSE ---
THE SECOND OF UNIT OF BLOOD WAS VERIFIED WITH MEAGAN HEATH RN. APPARENTLY FOR SOME REASON THIS DID NOT GET SAVED IN THE SYSTEM. SO I WAS UNABLE TO DUCUMENT THE ENDING OF THE BLLOD BUT ALL BLOOD VSS ARE SAVED. UNIT WAS VERIFIED AT 1300 PER ANTONELLA GARCIA RN. AND MEAGAN HEATH RN. ANN MARIE FROM [facility] IS AWARE AND SHE STATED SHE WOULD NOTIFY LAB IN THE MORNING. TOTAL BLOOD VOLUME WAS 254 MLS.
--- NOTE | 2017-03-28 20:30 | PC.NURSE ---
PT STATED THAT HE ONLY TAKES 2 OF THE 100MG CAPSULES OF ZONISAMIDE, NOT 3 IS ORDERED
[2017-03-29] VITALS (16 sets, daily range): BP systolic 94–147; BP diastolic 47–87; PULSE 60–71; RESP 14–18; TEMP 36.1–36.9; O2SAT 94–100
--- NOTE | 2017-03-29 04:15 | PC.NURSE ---
PT ALERT AND ORIENTED. HAS EXPRESSIVE DYSPHASIA AND RT SIDED HEMIPARESIS; SLEPT MOST ALL OF SHIFT OF THIS TIME. NO C/O PAIN OR DISCOMFORT. PT NPO SINCE R/T ZAKIA SCHEDULED THIS A.M. IV #20 LEFT HAND, PATENT, SL; REFUSES REID FOR RT LEG SAYS IT BOTHERS HIM. RESPIRATIONS EVEN AND UNLABORED. BREATH SOUNDS CLEAR. PT STABLE. WILL CONTINUE TO MONITOR. REPORT TO BE GIVEN TO ONCOMING NURSE.
--- NOTE | 2017-03-29 07:37 | PC.NURSE ---
REPORT GIVEN TO Sunshine MEJIA W/C
--- NOTE | 2017-03-29 07:52 | P.PN_ITS ---
[facility] Anesthesia Checklist - Patient Identification Patient Identification: Arm Band, Verbal (Name & ) - Structural Data Admitted From: Inpatient Planned Operative Procedure/s: egd Consent for Planned Operative Procedure(s) Verified: Yes Verified Documents: Surgical Consent - Chart Verification Results Verified: CBC, BMP - Additional verifications Patient : No Anesthesia Reactions: No Hx Blood Transfusions: No Blood Transfusion Reaction: No Cephalosporin Allergy: No Previous Colonoscopy: No - Cardiovascular Assessment Heart Sounds: S1 & S2 Pulse Strength: Weak Pulse Rhythm: Regular Peripheral Edema: No - Airway Assessment C-Spine Mobility Assessed: Yes TMJ Mobility Assessed: Yes Dentition: Poor Dentition - Neurological Assessment Level of Consciousness: Awake, Alert Hx Seizures: Yes Numbness or tingling in extremities: No - Anesthesia Plan Anesthesia Risk discussed: Yes ASA Class: III Anesthesia Type: [facility] Anesthesia HX I have reviewed the patient's past medical history: Yes Medical History: Reports:: Atherosclerotic Heart Disease, Cancer, Cardiomyopathy , Congestive Heart Failure, Chronic Obstructive Pulmonary Disease (COPD), Coronary Artery Disease, Cerebrovascular Accident, Gastroesophageal Reflux Disease(GERD), Gastrointestinal Bleed, Hepatitis (C), Hyperlipidemia, Hypertension, Internal Pacemaker, Lung Disease, Kidney Stones, Myocardial Infarction, Renal Insufficiency, Seizures Denies:: Diabetes Mellitus Type 1, Diabetes Mellitus Type 2 Other Surgeries: Yes: Appendectomy, Pacemaker Amputation: No Fractures: No *Family Hx:: Diabetes
--- NOTE | 2017-03-29 08:01 | HMH.SCOPE ---
- Procedure: Date: 03/29/17 Procedure Performed:: Esophagogastroduodenoscopy Indications:: Patient is a 66-year-old white male admitted with significant anemia. Performing Provider:: Babak Friend MD Referring Provider:: Emigdio Hurt Sedation:: Propofol Procedure:: Patient was taken to endoscopy procedure room. He was positioned in a lateral decubitus position. Adequate intravenous sedation was achieved with anesthesia patient will follow. Olympus endoscope was inserted via the oropharynx. Esophagus appeared normal. Gastroesophageal junction was unremarkable. Stomach was cannulated and insufflated. Retroflexion was performed. There was a small polyp in the cardia consistent with fundic gland polyp. There was a very small hiatal hernia. No evidence of any appreciable gastritis. Pylorus was normal. Endoscope was advanced through the pylorus and the duodenal bulb and duodenal sweep which was unremarkable. Endoscope was withdrawn. Findings:: Unremarkable upper endoscopy without evidence of any source of bleeding. Small fundic gland polyp. Specimens:: None Recommendations:: Continue proton pump inhibitors. I will see if there is any record of prior colonoscopy. If not patient may need outpatient colonoscopy. Complications:: None Estimated blood obtained (mL): 1
--- NOTE | 2017-03-29 08:49 | PC.NURSE ---
650 total infused at time of discharge back to second floor medsurge, iv is patent.
--- NOTE | 2017-03-29 08:50 | PC.NURSE ---
pt off the floor at time of rounding
--- NOTE | 2017-03-29 09:25 | PC.NURSE ---
Contacted Dr. Friend's office in regards to pt receiving a diet order for lunch. Staff reports that MD has left for the day. Asked to speak with MD covering Dr. Friend (Dr. Carbone). Staff states they will contact Dr Friend and have him call me regarding meal.
--- NOTE | 2017-03-29 10:10 | HMH.ACPN2 ---
<Roseanna Sultana - Last Filed: 03/29/17 10:10> Internal Medicine - PN: Subj *Date: 03/29/17 *Time: 10:10 Interval history: Pt just came up from his EGD, which was unremarkable. He is still drowsy. He denies any pain and states he slept well last night. Exam Vital signs and Labs for Last 24 Hours: Temp Pulse Resp BP Pulse Ox 97.7 F 60 14 103/55 99 03/29/17 07:48 03/29/17 08:18 03/29/17 08:18 03/29/17 08:18 03/29/17 08:18 Laboratory Results - last 24 hr 03/28/17 08:00: Blood Type O Positive, Antibody Screen Negative, Crossmatch (AHG) See Detail 03/28/17 15:44: Hgb 10.3 L D, Hct 30.6 L I & O for Last 24 hours: Intake & Output 03/26/17 03/27/17 03/28/17 03/29/17 11:59 11:59 11:59 11:59 Intake Total 2839 / 2839 2619 / 2619 Output Total 950 / 950 1500 / 1500 Balance 1889 / 1889 1119 / 1119 Weight 152 lb 3 oz 154 lb 2 oz - Constitutional no acute distress (drowsy) - *Routine Respiratory Exam Present: CTA bilaterally - *Routine Cardiovascular Exam Present: RRR - *Routine Abdominal Exam Present: soft, normoactive bowel sounds. Absent: tenderness - *Routine Extremities Exam Absent: edema Assessment and Plan (1) Hyponatremia Current visit: Yes Status: Acute Category: Medical Code(s): E87.1 - Hypo-osmolality and hyponatremia (2) Acute blood loss anemia Current visit: Yes Status: Acute Category: Medical Code(s): D62 - Acute posthemorrhagic anemia (3) Weakness Current visit: Yes Status: Acute Category: Medical Code(s): R53.1 - Weakness (4) Chronic anemia Current visit: Yes Status: Acute Category: Medical Code(s): D64.9 - Anemia, unspecified (5) Hepatitis C Current visit: Yes Status: Chronic Category: Medical Code(s): B19.20 - Unspecified viral hepatitis C without hepatic coma (6) History of GI bleed Current visit: Yes Status: Chronic Category: Medical Code(s): Z87.19 - Personal history of other diseases of the digestive system (7) AVM (arteriovenous malformation) Current visit: Yes Status: Chronic Category: Medical Code(s): Q27.30 - Arteriovenous malformation, site unspecified (8) CAD (coronary artery disease) Current visit: Yes Status: Chronic Category: Medical Code(s): I25.10 - Atherosclerotic heart disease of [place] coronary artery without angina pectoris (9) History of seizure Current visit: Yes Status: Chronic Category: Medical Code(s): Z87.898 - Personal history of other specified conditions (10) History of stroke Current visit: Yes Status: Chronic Category: Medical Code(s): Z86.73 - Personal history of transient ischemic attack (TIA), and cerebral infarction without residual deficits (11) Right hemiplegia Current visit: Yes Status: Chronic Category: Medical Code(s): G81.91 - Hemiplegia, unspecified affecting right dominant side (12) Cardiomyopathy Current visit: Yes Status: Acute Category: Medical Code(s): I42.9 - Cardiomyopathy, unspecified - Assessment and plan all Dx Assessment and Plan for all problems:: Dr. Friend's note reviewed. He is going to try to see if the patient has had a recent C-scope and if not, he recommends one on an outpatient basis. Will order a diet for the patient. Possible discharge home later today. <Vargas Hurt - Last Filed: 03/29/17 13:52> Internal Medicine - PN: Subj *Date: 03/29/17 *Time: 13:50 Exam Vital signs and Labs for Last 24 Hours: Temp Pulse Resp BP Pulse Ox 97.4 F L 60 16 126/56 98 03/29/17 11:15 03/29/17 11:15 03/29/17 11:15 03/29/17 11:15 03/29/17 11:15 Laboratory Results - last 24 hr 03/28/17 15:44: Hgb 10.3 L D, Hct 30.6 L I & O for Last 24 hours: Intake & Output 03/27/17 03/28/17 03/29/17 03/30/17 11:59 11:59 11:59 11:59 Intake Total 2839 / 2839 2619 / 2619 Output Total 950 / 950 1500 / 1500 Balance 1889 / 1889 1119 / 1119 Weight 152 lb 3 oz
[2017-03-29 14:01] LABS: Hematocrit 30.3 % (42.0-52.0); Hemoglobin 10.2 g/dL (14.1-18.0)
--- NOTE | 2017-03-29 17:34 | HMH.DCSUM ---
General - General Admission date: 03/27/17 <Vargas Hurt - 03/29/17 17:37> Discharge date: 03/29/17 <Roseanna Sultana - 04/02/17 14:12> HPI HPI: Patient is a 66-year-old white male who is a and has received previous medical care from the [facility] and [facility]. 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 He also has an apparent history of hepatitis C. He is a history of apparent chronic iron deficiency anemia and has previously had an EGD performed by Dr. Carbone 2 years ago for anemia. He had presented to the urgent treatment center with chills, weakness, and body aches. He was admitted. He was noted to have appreciable anemia with a hemoglobin of 7.8 and hematocrit of 23.5%. Surgery was consulted. It is unclear when the patient had any prior colonoscopy. <LichaVargas Emigdio - 03/29/17 17:37> Objective Vital signs: Temp Pulse Resp BP Pulse Ox 97.9 F 68 18 105/49 94 L 03/29/17 16:28 03/29/17 16:28 03/29/17 16:28 03/29/17 16:28 03/29/17 16:28 <Roseanna Sultana - 04/02/17 14:12> Temp Pulse Resp BP Pulse Ox 97.9 F 68 18 105/49 94 L 03/29/17 16:28 03/29/17 16:28 03/29/17 16:28 03/29/17 16:28 03/29/17 16:28 <Vargas Hurt - 03/29/17 17:37> Narrative: - Constitutional no acute distress, cooperative - *Routine HEENT Exam Eye: Present: PERRL ENT: Present: mucous membranes moist - *Routine Neck Exam Present: supple, full ROM. Absent: carotid bruit, lymphadenopathy, thyromegaly - *Routine Respiratory Exam Present: CTA bilaterally (A&P) - *Routine Cardiovascular Exam Present: RRR. Absent: murmur - *Routine Abdominal Exam Present: soft, normoactive bowel sounds. Absent: tenderness, distended - *Routine Extremities Exam Absent: edema, calf tenderness - *Routine Neurological Exam Present: alert. Absent: moving all extremities , right hemiplegia <Roseanna Sultana - 04/02/17 14:12> Hospital Course Hospital Course: The patient was anemic and had a low sodium. He was started on IV normal saline and given blood. His sodium and H&H improved. Surgery was consulted. He was seen by Dr. Friend who performed an EGD. The EGD was unremarkable. Dr. Friend recommeded continuing with PPI's and felt he would need an outpatient colonoscopy. The patient tolerated the procedure and was able to eat and drink. He was stable to be discharged home and will f/u with [facility]CP [facility]. <Roseanna Sultana - 04/02/17 14:12> Results Labs on day of discharge: Labs from last 24 hours 03/29/17 13:53 Hgb 10.2 L Hct 30.3 L <Vargas Hurt - 03/29/17 17:37> DS: Diagnosis - Discharge Diagnosis (1) Hyponatremia Status: Acute (2) Acute blood loss anemia Status: Acute (3) Weakness Status: Acute (4) Chronic anemia Status: Acute (5) Hepatitis C Status: Chronic (6) History of GI bleed Status: Chronic (7) AVM (arteriovenous malformation) Status: Chronic (8) CAD (coronary artery disease) Status: Chronic (9) History of seizure Status: Chronic (10) History of stroke Status: Chronic (11) Right hemiplegia Status: Chronic (12) Cardiomyopathy Status: Acute <Roseanna Sultana - 04/02/17 14:12> (1) Hyponatremia Status: Acute (2) Acute blood loss anemia Status: Acute (3) Weakness Status: Acute (4) Chronic anemia Status: Acute (5) Hepatitis C Status: Chronic (6) History of GI bleed Status: Chronic (7) AVM (arteriovenous malformation) Status: Chronic (8) CAD (coronary artery disease) Status: Chronic (9) History of seizure Status: Chronic (10) History of stroke Status: Chronic (11) Right hemiplegia Status: Chronic (12) Cardiomyopathy Status: Acute
--- NOTE | 2017-03-29 17:37 | P.DS_ITS ---
General - General Admission date: 03/27/17 <Vargas Hurt - 03/29/17 17:37> Discharge date: 03/29/17 <Roseanna Sultana - 04/02/17 14:12> HPI HPI: Patient is a 66-year-old white male who is a and has received previous medical care from the [facility] and [facility]. 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 He also has an apparent history of hepatitis C. He is a history of apparent chronic iron deficiency anemia and has previously had an EGD performed by Dr. Carbone 2 years ago for anemia. He had presented to the urgent treatment center with chills, weakness, and body aches. He was admitted. He was noted to have appreciable anemia with a hemoglobin of 7.8 and hematocrit of 23.5%. Surgery was consulted. It is unclear when the patient had any prior colonoscopy. <LichaVargas Emigdio - 03/29/17 17:37> Objective Vital signs: Temp Pulse Resp BP Pulse Ox 97.9 F 68 18 105/49 94 L 03/29/17 16:28 03/29/17 16:28 03/29/17 16:28 03/29/17 16:28 03/29/17 16:28 <Roseanna Sultana - 04/02/17 14:12> Temp Pulse Resp BP Pulse Ox 97.9 F 68 18 105/49 94 L 03/29/17 16:28 03/29/17 16:28 03/29/17 16:28 03/29/17 16:28 03/29/17 16:28 <Vargas Hurt - 03/29/17 17:37> Narrative: - Constitutional no acute distress, cooperative - *Routine HEENT Exam Eye: Present: PERRL ENT: Present: mucous membranes moist - *Routine Neck Exam Present: supple, full ROM. Absent: carotid bruit, lymphadenopathy, thyromegaly - *Routine Respiratory Exam Present: CTA bilaterally (A&P) - *Routine Cardiovascular Exam Present: RRR. Absent: murmur - *Routine Abdominal Exam Present: soft, normoactive bowel sounds. Absent: tenderness, distended - *Routine Extremities Exam Absent: edema, calf tenderness - *Routine Neurological Exam Present: alert. Absent: moving all extremities , right hemiplegia <Roseanna Sultana - 04/02/17 14:12> Hospital Course Hospital Course: The patient was anemic and had a low sodium. He was started on IV normal saline and given blood. His sodium and H&H improved. Surgery was consulted. He was seen by Dr. Friend who performed an EGD. The EGD was unremarkable. Dr. Friend recommeded continuing with PPI's and felt he would need an outpatient colonoscopy. The patient tolerated the procedure and was able to eat and drink. He was stable to be discharged home and will f/u with his PCP at the [place]. <CarrollkendrickRoseanna - 04/02/17 14:12> Results Labs on day of discharge: Labs from last 24 hours 03/29/17 13:53 Hgb 10.2 L Hct 30.3 L <Vargas Hurt - 03/29/17 17:37> DS: Diagnosis - Discharge Diagnosis (1) Hyponatremia Status: Acute (2) Acute blood loss anemia Status: Acute (3) Weakness Status: Acute (4) Chronic anemia Status: Acute (5) Hepatitis C Status: Chronic (6) History of GI bleed Status: Chronic (7) AVM (arteriovenous malformation) Status: Chronic (8) CAD (coronary artery disease) Status: Chronic (9) History of seizure Status: Chronic (10) History of stroke Status: Chronic (11) Right hemiplegia Status: Chronic (12) C
== END 2017-03-29 19:30 | disposition home or self-care (01) | DRG 641 ==
LOC: UTC 09:31 → ER 10:09 → 2ND 12:12
PROVIDERS: Nurse Practitioner Family; Surgery; Admitting Provider Family Medicine; Emergency Provider Emergency Medicine; Family Provider Family Medicine; Visit Provider Family Medicine
PROC: 0DJ08ZZ Inspection of Upper Intestinal Tract, Via Natural or Artificial Opening Endoscopic (ICD-10-PCS; CPT 43235; principal; 2017-03-29 07:30)
DX: E87.1 Hypo-osmolality and hyponatremia (principal); D62 Acute posthemorrhagic anemia; I42.9 Cardiomyopathy, unspecified; G81.91 Hemiplegia, unspecified affecting right dominant side; I69.351 Hemiplegia and hemiparesis following cerebral infarction affecting right dominant side; B19.20 Unspecified viral hepatitis C without hepatic coma; I25.10 Atherosclerotic heart disease of native coronary artery without angina pectoris; I69.321 Dysphasia following cerebral infarction; Z95.0 Presence of cardiac pacemaker
CPT/HCPCS: 43235; 36415; 70450; 71045; 80048; 80053; 80184; 82550; 82553; 82962; 84484; 85014; 85018; 85025; 85610; 86850; 87275; 87276; 87430; 87486; 87581; 87633; 87798; 93005; 93041; 99283; P9016

== ENCOUNTER 2017-04-17 16:05 | Emergency (ER) | payer MEDICARE, BC, OTHER, SELFPAY ==
[2017-04-17 16:16] VITALS: BP 163/72; PULSE 67; RESP 18; TEMP 36.4; O2SAT 99; BMI 25.0
--- NOTE | 2017-04-17 16:58 | XR_ITS ---
XR acute abdomen series HISTORY: ITS.REASON: vomiting ORDERING PHYSICIAN: Dc Conroy MD PATIENT AGE: 66 years COMPARISON: None FINDINGS: From view the chest shows no acute finding. There is a bipolar pacer present. There is evidence of old granulomatous disease and there is a coronary artery stent present over the right rib fractures are noted. Upright and supine views of the abdomen demonstrates a large calcification in the right upper quadrant measuring 2.9 x 1 cm representing a large gallstone as seen by previous CT scan. Bowel gas pattern is nonspecific and nonobstructive. There are some nondistended gas-filled loops of small bowel in the right abdomen. No acute bony anomalies. Prior ORIF right femoral neck fracture with multiple screws in place with dysplastic changes of the right femoral head and osteoarthritis of the right hip No free air. IMPRESSION: 1. Cholelithiasis. 2. Nonspecific nonobstructive bowel gas pattern.
--- NOTE | 2017-04-17 16:58 | CT_ITS ---
CT head/brain wo con HISTORY: ITS.REASON: vomiting and old stroke ORDERING PHYSICIAN: Dc Conroy MD PATIENT AGE: 66 years COMPARISON: 03/27/2017 TECHNIQUE: Axial images obtained without contrast. Brain and bone windows reviewed. FINDINGS: There is generalized atrophy. Aneurysm clips are present in the middle cranial fossa. There has been prior left temporal craniotomy. Encephalomalacia changes are present in the left frontal, temporal, and parietal lobes consistent with an old middle for artery infarction. There is compensatory dilatation of the left lateral ventricle secondary to the volume loss. No midline shift or mass effect. No acute intracranial hemorrhage. IMPRESSION: Old left middle cerebral artery infarction with encephalomalacia change and prior aneurysm clipping. No change from 03/27/2017 with no acute finding
--- NOTE | 2017-04-17 16:59 | HMH.EDNVD ---
ED Disposition Clinical Impression: Hyponatremia, Anemia, Seizure, Hepatitis, Cholelithiasis, Hypomagnesemia Disposition: Xfer Short-Term Hosp Condition on Discharge: Fair Instructions: DI for Diarrhea and Traveler's Diarrhea -- Adult, DI for Diarrhea and Traveler's Diarrhea -- Child, DI for Nausea -- Adult, DI for Nausea -- Child - Critical Care Critical Care Time: No Attestation: On 04/17/17, the high probability of a clinically significant, sudden or life threatening deterioration of the following system(s) required my full and direct attention, intervention and personal management. The time I documented below is in addition to time spent performing reported procedures but includes the following listed in this critical care notation. Medical Decision Making - Medical Records Medical records reviewed: Yes: I reviewed the patient's medical records. Vital Signs: 04/17/17 16:16 Temperature 97.5 F L Temperature Source Oral Pulse Rate [Right Radial] 67 Respiratory Rate 18 Blood Pressure [Right Arm] 163/72 Blood Pressure Mean [Right Arm] 102 Blood Pressure Source [Right Arm] Automatic Cuff Blood Pressure Position [Right Arm] Sitting 02 Sat by Pulse Oximetry 99 Oxygen Delivery Method Room Air - Lab Data Lab Results 04/17/17 16:48: Influenza Type A Ag Negative, Influenza Type B Ag Negative 04/17/17 17:00: WBC 7.6, RBC 3.01 L, Hgb 9.5 L, Hct 27.3 L, MCV 90.7, MCH 31.5 H, MCHC 34.8, RDW 14.3, Plt Count 329, MPV 8.3, Neut % (Auto) 83.7 H, Lymph % (Auto) 9.4 L, Amelia % (Auto) 4.8, Eos % (Auto) 1.8, Baso % (Auto) 0.4, Neut # (Auto) 6.3, Lymph # (Auto) 0.7, Amelia # (Auto) 0.4, Eos # (Auto) 0.1, Baso # (Auto) 0.0 04/17/17 17:00: Sodium 115 L, Potassium 3.8, Chloride 81 L, Carbon Dioxide 23, Anion Gap 14.8, BUN 8, Creatinine 0.96, Estimated Creat Clear 74, Estimated GFR 78, Est GFR ( Amer) 95, Glucose 131 H, Calcium 8.3 L, Total Bilirubin 0.4, AST 12 L, ALT 20, Alkaline Phosphatase 106, Total Creatine Kinase 49, CK-MB (CK-2) 1.5 D, CK-MB (CK-2) Rel Index 3.1, Troponin I < 0.02, Total Protein 7.1, Albumin 3.7, Globulin 3.4 H, Albumin/Globulin Ratio 1.1, Amylase 86, Carbamazepine 0.2 L, Phenobarbital 19.5 04/17/17 17:00: Ammonia 19 04/17/17 17:00: Magnesium 1.2 L Result diagrams: 04/17/17 17:00 04/17/17 17:00 Orders (Tests/Meds): ED MEDICATIONS Generic Name Dose Route Start Last Admin Trade Name Freq PRN Reason Stop Dose Admin Sodium Chloride 1,000 mls @ 999 mls/hr 04/17/17 19:30 04/17/17 18:05 Sod Chlor 0.9% 1000ml Bag IV 04/17/17 20:30 999 mls/hr .[id number] CHANG Administration Discontinued Medications Generic Name Dose Route Start Last Admin Trade Name Freq PRN Reason Stop Dose Admin Magnesium Sulfate 1 gm/ Sodium 102 mls @ 200 mls/hr 04/17/17 19:46 04/17/17 20:11 Chloride IV 04/17/17 20:16 200 mls/hr ONCE ONE Administration Ondansetron HCl 4 mg 04/17/17 16:46 04/17/17 16:50 Zofran 4mg/2ml Vial IV 04/17/17 16:47 4 mg ONCE ONE Administration ORDERS Category Date Time Status 12-lead EKG Request [ECG Request by /Tiara] Stat Y 04/17/17 16:34 Ordered - Radiology Data #1 Image Reviewed: Yes I have reviewed radiologist's interpretation Preliminary Findings: Abnormal IMPRESSION: 1. Cholelithiasis. 2. Nonspecific nonobstructive bowel gas pattern. - CT Data CT Scan: Head Time Received: 19:[address] Reviewed: Yes: I have viewed the radiologist's interpretation - ECG Data Tracing #1 Normal sinus rhythm 78/min baseline artifact no acute finding. ECG initial impression date: 04/17/17 ECG initial impression time: 20:25 - Mirza Inquiry Pt receiving controlled substance: No Mirza was queried for this patient: No Medical Decision Making Narrative: [facility] change at 1930 . 2020 called the [facility] in [place], we are still waiting on bed coordinator and MD/MD call. I wi
--- NOTE | 2017-04-17 17:03 | ED_ITS ---
ED Disposition Clinical Impression: Hyponatremia, Anemia, Seizure, Hepatitis, Cholelithiasis, Hypomagnesemia Disposition: Xfer Short-Term Hosp Condition on Discharge: Fair Instructions: DI for Diarrhea and Traveler's Diarrhea -- Adult, DI for Diarrhea and Traveler's Diarrhea -- Child, DI for Nausea -- Adult, DI for Nausea -- Child - Critical Care Critical Care Time: No Attestation: On 04/17/17, the high probability of a clinically significant, sudden or life threatening deterioration of the following system(s) required my full and direct attention, intervention and personal management. The time I documented below is in addition to time spent performing reported procedures but includes the following listed in this critical care notation. Medical Decision Making - Medical Records Medical records reviewed: Yes: I reviewed the patient's medical records. Vital Signs: 04/17/17 16:16 Temperature 97.5 F L Temperature Source Oral Pulse Rate [Right Radial] 67 Respiratory Rate 18 Blood Pressure [Right Arm] 163/72 Blood Pressure Mean [Right Arm] 102 Blood Pressure Source [Right Arm] Automatic Cuff Blood Pressure Position [Right Arm] Sitting 02 Sat by Pulse Oximetry 99 Oxygen Delivery Method Room Air - Lab Data Lab Results 04/17/17 16:48: Influenza Type A Ag Negative, Influenza Type B Ag Negative 04/17/17 17:00: WBC 7.6, RBC 3.01 L, Hgb 9.5 L, Hct 27.3 L, MCV 90.7, MCH 31.5 H , MCHC 34.8, RDW 14.3, Plt Count 329, MPV 8.3, Neut % (Auto) 83.7 H, Lymph % ( Auto) 9.4 L, [place] % (Auto) 4.8, Eos % (Auto) 1.8, Baso % (Auto) 0.4, Neut # ( Auto) 6.3, Lymph # (Auto) 0.7, [place] # (Auto) 0.4, Eos # (Auto) 0.1, Baso # (Auto ) 0.0 04/17/17 17:00: Sodium 115 L, Potassium 3.8, Chloride 81 L, Carbon Dioxide 23, Anion Gap 14.8, BUN 8, Creatinine 0.96, Estimated Creat Clear 74, Estimated GFR 78, Est GFR ( Amer) 95, Glucose 131 H, Calcium 8.3 L, Total Bilirubin 0.4 , AST 12 L, ALT 20, Alkaline Phosphatase 106, Total Creatine Kinase 49, CK-MB ( CK-2) 1.5 D, CK-MB (CK-2) Rel Index 3.1, Troponin I < 0.02, Total Protein 7.1, Albumin 3.7, Globulin 3.4 H, Albumin/Globulin Ratio 1.1, Amylase 86, Carbamazepine 0.2 L, Phenobarbital 19.5 04/17/17 17:00: Ammonia 19 04/17/17 17:00: Magnesium 1.2 L Result diagrams: 04/17/17 17:00 04/17/17 17:00 Orders (Tests/Meds): ED MEDICATIONS Generic Name Dose Route Start Last Admin Trade Name Freq PRN Reason Stop Dose Admin Sodium Chloride 1,000 mls @ 999 mls/hr 04/17/17 19:30 04/17/17 18:05 Sod Chlor 0.9% 1000ml Bag IV 04/17/17 20:30 999 mls/hr .Q1H1M CHANG Administration Discontinued Medications Generic Name Dose Route Start Last Admin Trade Name Freq PRN Reason Stop Dose Admin Magnesium Sulfate 1 gm/ Sodium 102 mls @ 200 mls/hr 04/17/17 19:46 04/17/17 20:11 Chloride IV 04/17/17 20:16 200 mls/hr ONCE ONE Administration Ondansetron HCl 4 mg 04/17/17 16:46 04/17/17 16:50 Zofran 4mg/2ml Vial IV 04/17/17 16:47 4 mg ONCE ONE Administration ORDERS Category Date Time Status 12-lead EKG Request [ECG Request by /Tiara] Stat Y 04/17/17 16:34 Ordered - Radiology Data #1 Image Reviewed: Yes I have reviewed radiologist's interpretation Preliminary Findings: Abnormal IMPRESSION: 1. Cholelithiasis. 2. Nonspecific nonobstru
[2017-04-17 17:22] LABS: Basophils % 0.4 % (0.1-2.0); Eosinophils # 0.1 K/mm3 (0.0-0.4); Eosinophils % 1.8 % (0.1-12.0); Hematocrit 27.3 % (42.0-52.0); Hemoglobin 9.5 g/dL (14.1-18.0); Lymphocytes # 0.7 K/mm3 (0.7-4.5); Lymphocytes % 9.4 K/mm3 (10-50); Mean Corpuscular HGB Conc 34.8 g/dL (31.8-35.4); Mean Corpuscular Hemoglobin 31.5 pg (27.0-31.2); Mean Corpuscular Volume 90.7 fl (80-94); Mean Platelet Volume 8.3 fl (7.4-10.4); Monocytes # 0.4 K/mm3 (0.1-1.0); Monocytes % 4.8 % (1.7-9.3); Neutrophils # 6.3 K/mm3 (1.8-7.8); Neutrophils % 83.7 % (37.0-80.0); Platelet Count 329 K/mm3 (142-424); Red Blood Count 3.01 M/mm3 (4.60-6.20); Red Cell Distribution Width 14.3 % (11.5-17.5); White Blood Count 7.6 K/mm3 (4.8-10.8)
[2017-04-17 17:26] LABS: Magnesium 1.2 mg/dL (1.4-2.2)
[2017-04-17 17:34] LABS: Ammonia 19 umol/L (19-54)
[2017-04-17 18:00] LABS: Alanine Aminotransferase 20 U/L (12-78); Albumin Level 3.7 gm/dL (3.4-5.0); Albumin/Globulin Ratio 1.1 (1.1-1.8); Alkaline Phosphatase 106 U/L (46-116); Amylase 86 U/L (25-125); Anion Gap 14.8 mEq/L (5-15); Aspartate Amino Transferase 12 U/L (15-37); Bilirubin,Total 0.4 mg/dL (0.2-1.0); Blood Urea Nitrogen 8 mg/dL (7-18); CKMB Relative Index 3.1 U/L (0-4.0); Calcium 8.3 mg/dL (8.5-10.1); Carbamazepine (Tegretol) 0.2 ug/ml (4.0-12.0); Carbon Dioxide 23 mmol/L (21.0-32.0); Chloride 81 mmol/L (98-107); Creatine Kinase 49 U/L (39-308); Creatine Kinase MB 1.5 mg/ml (0.0-3.6); Creatinine Clearance Estimated 74 mL/min (0-300); Creatinine,Serum 0.96 mg/dL (0.70-1.30); Estimated Glomerular Filt Rate 78 ml/min (>60); GFR (African American) 95 ML/MIN (>60); Globulin 3.4 gm/dl (1.3-3.2); Glucose 131 mg/dL (74-106); Potassium 3.8 mmoL/L (3.5-5.1); Total Protein,Serum 7.1 gm/dL (6.4-8.2); Troponin I < 0.02 ng/ml (0.00-0.06)
[2017-04-17 18:02] LABS: Sodium 115 mmol/L (136-145)
--- NOTE | 2017-04-17 18:04 | PC.NURSE ---
lab called with criticals sodium 115 dr rosales aware
--- NOTE | 2017-04-17 19:01 | PC.NURSE ---
[facility] at [facility] time stated they are going to evaluate their bed availability and check in the ER and call us back stated this would take approx 1 hour r/t shift change. Notified ER MD.
[2017-04-17 21:27] VITALS: BP 144/66; PULSE 75; RESP 16; TEMP 36.5; O2SAT 98
--- NOTE | 2017-04-17 21:29 | PC.NURSE ---
REPORT CALLED TO JEAN-CLAUDE AT [facility]
== END 2017-04-17 21:31 | disposition short-term general hospital (02) ==
PROVIDERS: Emergency Provider Emergency Medicine; Family Provider Family Medicine
DX: K80.20 Calculus of gallbladder without cholecystitis without obstruction (principal); E83.42 Hypomagnesemia; R56.9 Unspecified convulsions; D64.9 Anemia, unspecified; Z86.73 Personal history of transient ischemic attack (TIA), and cerebral infarction without residual deficits; Z95.0 Presence of cardiac pacemaker; I10 Essential (primary) hypertension; E78.5 Hyperlipidemia, unspecified; K21.9 Gastro-esophageal reflux disease without esophagitis; Z79.899 Other long term (current) drug therapy; B19.20 Unspecified viral hepatitis C without hepatic coma; F12.10 Cannabis abuse, uncomplicated
CPT/HCPCS: 70450; 74021; 80053; 80156; 80184; 82140; 82150; 82550; 82553; 83735; 84484; 85025; 87275; 87276; 93005; 96365; 96367; 96374; 96375; 99283; J2405

== ENCOUNTER 2018-07-26 09:46 | Observation (INO) ==
--- NOTE | 2018-07-26 10:18 | Emergency Department Note ---
ED Disposition Clinical Impression: Dehydration, Hyponatremia Acute renal failure Qualifiers: Acute renal failure type: unspecified Qualified Code(s): N17.9 - Acute kidney failure, unspecified Disposition: Admitted as Observation Condition on Discharge: Fair Referrals: Provider,Referral, [Primary Care Provider] - - Critical Care Critical Care Time: No Attestation: On 07/26/18, the high probability of a clinically significant, sudden or life threatening deterioration of the following system(s) required my full and direct attention, intervention and personal management. The time I documented below is in addition to time spent performing reported procedures but includes the following listed in this critical care notation. Medical Decision Making - Mirza Inquiry Pt receiving controlled substance: No Vital Signs: 07/26/18 09:46 07/26/18 10:08 07/26/18 11:01 Temperature 97.8 F Temperature Source Oral Pulse Rate [Left Radial] 70 67 71 Respiratory Rate 18 Blood Pressure [Left Arm] 139/60 130/60 148/73 H Blood Pressure Mean [Left Arm] 86 83 98 Blood Pressure Source [Left Arm] Automatic Cuff Automatic Cuff Automatic Cuff Blood Pressure Position [Left Arm] Sitting Sitting Sitting 02 Sat by Pulse Oximetry 97 97 98 Oxygen Delivery Method Room Air Room Air Room Air 07/26/18 12:15 Temperature Temperature Source Pulse Rate [Left Radial] 69 Respiratory Rate Blood Pressure [Left Arm] 134/71 Blood Pressure Mean [Left Arm] 92 Blood Pressure Source [Left Arm] Automatic Cuff Blood Pressure Position [Left Arm] Sitting 02 Sat by Pulse Oximetry 100 Oxygen Delivery Method Room Air - Lab Data Lab Results 07/26/18 09:55: WBC 7.1, RBC 3.27 L, Hgb 9.8 L, Hct 28.7 L, MCV 87.8, MCH 29.8, MCHC 34.0, RDW 13.1, Plt Count 308, MPV 7.7, Neut % (Auto) 66.5, Lymph % (Auto) 21.0, [place] % (Auto) 8.9, Eos % (Auto) 2.9, Baso % (Auto) 0.7, Neut # (Auto) 4.8, Lymph # (Auto) 1.5, [place] # (Auto) 0.6, Eos # (Auto) 0.2, Baso # (Auto) 0.1 07/26/18 09:55: Sodium 127 L, Potassium 4.2, Chloride 93 L, Carbon Dioxide 21, Anion Gap 17.2 H, BUN 19 H, Creatinine 2.51 H D, Estimated Creat Clear 26, Estimated GFR 26 L, Est GFR ( Amer) 31 L D, Glucose 81 D, Calcium 8.6, Total Bilirubin 0.4, AST 10 L, ALT 16, Alkaline Phosphatase 105, Total Protein 7.3, Albumin 3.7, Globulin 3.6 H, Albumin/Globulin Ratio 1.0 L 07/26/18 09:55: Troponin I < 0.02 Result diagrams: 07/26/18 09:55 07/26/18 09:55 Orders (Tests/Meds): ED MEDICATIONS Generic Name Dose Route Start Last Admin Trade Name Freq PRN Reason Stop Dose Admin Sodium Chloride 1,000 mls @ 150 mls/hr 07/26/18 10:45 07/26/18 10:51 Sod Chlor 0.9% 1000ml Bag IV 08/25/18 10:44 150 mls/hr .[id number] CHANG Administration - CT Data CT Scan: Head Time Received: 11:[address] Reviewed: Yes: I have viewed the radiologist's interpretation Findings Narrative: IMPRESSION:......... 1. No acute intracranial findings. 2. Stable Extensive encephalomalacia from old infarct at the left cerebral hemisphere. No hemorrhage. No acute findings evident on today's CT ... Extensive old left MCA infarct with prominent extensive encephalomalacia throughout left MCA distribution.. Left craniotomy with Aneurysm clips along the proximal MCA noted. ... Also area encephalomalacia noted far anterior frontal lobe adjacent to the falx, which reflects left anterior cerebral artery infarct, Dictated By: Juvenal Tineo Signed By: <Electronically signed by Juvenal Tineo in [place]> 07/26/18 1133 - ECG Data Tracing #1 EKG interpreted by Ab Estrada MD: Rhythm: sinus Rate: 61 [place]: normal Ectopy: none Conduction: First-degree AV block ST Segment Changes: none T Wave Changes: none Q Waves: none No evidence of acute ischemia or injury Baseline artifact present, but I consider the EKG adequate for accurate interpretation. - Physician Consults Physician Consulted: [facility] Time: 12:39 Reason -: Transfer to another facilty Comment/Response: No beds available, they recommend admission here Additional Consult: Lit Time: 12:56 Reason -: Admission Comment/Response: Agrees to admit the patient to the hospital. We discussed the patient's clinical information, including history, exam, laboratory and radiology results and ED course. Per hospital procedure, I will write temporary bridge inpatient orders on the patient. Specific orders requested by the admitting physician: Normal saline at 100 cc/h. Recheck labs in the morning. Medical Decision Narrative: CT from yesterday: IMPRESSION: 1. No change from 04/17/2017 with no acute finding. 2. Old left-sided middle cerebral artery infarction with encephalomalacia change. Postsurgical change from prior aneurysm clipping Dictated By: Zev Elaine MD Signed By: <Electronically signed by Zev Elaine MD in [place]> 07/25/18 1212 General Adult HPI - General Chief complaint: Weakness Stated complaint: weakness, nausea Time Seen by Provider: 07/26/18 10:18 Mode of Arrival: EMS Limitations: No Limitations Description of Symptoms (Recalled from ER Triage Doc. by RN): Per EMS report pts caregiver reports pt fell in the floor this morning, pt reports EMS got pt up, pt was not able to help them much. Reports pt normally walks with a cane. Reported when walking with EMS assistance pt became diaphoretic and gave nauseated. Upon arrival to ED pt denies pain, c/o nausea, reports unable to sit up on his on r/t weakness and reports double vision x3 days - History of Present Illness HPI narrative: Brought in by ambulance. The patient is a difficult historian due to expressive aphasia. He has a sleeping car porter with him, but she does not possess much knowledge about his condition and is of limited help. [employer] Director states that she noticed that "he was not right" this morning. She says that his speech was not as good as it normally is. She says she was going to fix him some baeza and when she turned around he was on the floor. She says that "I do not think he fell because I would have her that". [facility] was then called. My review of his record shows that he has a documented prior right hemiparesis and expressive aphasia due to previous stroke. [employer]front Director says she is not sure what his chronic deficits are, because she is only there a couple of hours a day. She says that he walks with a walker. The patient indicates to me that he has chronic right-sided weakness, arm worse than leg, cannot use his arm, but can use his leg to walk. He indicates he has had double vision for a couple of days. She states he is not eating and drinking well. He was seen in this emergency room yesterday for his double vision and possibly increased weakness. He had a work-up including a CT scan which showed prior CVA, but did not show anything acute. His daughter was contacted and indicated that he gets like this when he has anxiety. He was discharged back home by taxi. His primary care providers at the [facility] in [place]. - Related Data Home Medications Medication Instructions Recorded Confirmed Ascorbic Acid [Vitamin C] 500 mg PO DAILY 03/27/17 04/17/17 Aspirin [Aspir 81] 81 mg PO DAILY 03/27/17 04/17/17 Carvedilol [Carvedilol 25mg Tab] 12.5 mg PO DAILY 03/27/17 04/17/17 Cholecalciferol (Vitamin D3) 1,000 unit PO DAILY 03/27/17 04/17/17 [Vitamin D3 1,000 Unit Cap] Ferrous Gluconate [Ferrous 324 mg PO DAILY 03/27/17 04/17/17 Gluconate 324mg Tab] Gabapentin [Gabapentin 400mg Cap] 400 mg PO BID 03/27/17 04/17/17 Lisinopril [Lisinopril 10mg Tab] 5 mg PO DAILY 03/27/17 04/17/17 PHENobarbital [Phenobarbital] 64.8 mg PO DAILY 03/27/17 04/17/17 Pantoprazole Sodium [Pantoprazole 40 mg PO DAILY 03/27/17 04/17/17 20mg Tab] Simvastatin 20 mg PO HS 03/27/17 04/17/17 Zonisamide 300 mg PO HS 03/27/17 04/17/17 OXcarbazepine [Trileptal] 450 mg PO BID 03/28/17 04/17/17 Allergies Allergy/AdvReac Type Severity Reaction Status Date / Time dopamine [DOPAMINE] Allergy Mild Verified 03/27/17 10:57 [facility] History - Hepatitis A Screen Drug use history?: No High risk sexual behaviors?: No History of sexually transmitted infection?: No Currently employed?: No Childcare worker?: No Do you have indoor plumbing?: Yes Do you have electricity?: Yes Attestation statement:: This patient has been screened for Hepatitis A risk factors. Medical History: Reports:: Atherosclerotic Heart Disease, Cancer (testicular), Cardiomyopathy, Congestive Heart Failure, Chronic Obstructive Pulmonary Disease (COPD), Coronary Artery Disease, Cerebrovascular Accident, Gastroesophageal Reflux Disease(GERD), Gastrointestinal Bleed, Hepatitis (C), Hyperlipidemia, Hypertension, Internal Pacemaker, Lung Disease, Kidney Stones, Myocardial Infarction, Renal Insufficiency, Seizures Denies:: Diabetes Mellitus Type 1, Diabetes Mellitus Type 2, MRSA Other Medical History: Denies: Blood Transfusion Reaction Other Surgeries: Yes: Appendectomy, Pacemaker Amputation: No Fractures: No Comment: lung procedure; colon surgery for colon cancer - Social History Smoking Status: Never smoker Alcohol Intake: never Alcohol Intake Frequency:: holidays/special occasions only Substance Use Type: marijuana Occupational Status: disabled Household Members: caregiver - Psychiatric History Expresses thoughts of harming self/others: None Suicide Plan Description: No Plan Family Hx:: Diabetes ROS Obtained: Yes unobtainable due to mental condition Physical Exam - General General appearance: alert, in no apparent distress - Head Head exam: other (Deformity of left temporal skull due to prior craniotomy) - Eye Eye exam: Present: normal appearance, PERRL, EOMI - ENT ENT exam: Present: mucous membranes moist - Neck Neck exam: Present: normal inspection, trachea midline - Chest Chest inspection: Present: normal inspection, symmetric chest wall rise - Respiratory Respiratory exam: Present: normal lung sounds bilaterally. Absent: respiratory distress - Cardiovascular Cardiovascular exam: Present: regular rate, normal rhythm, normal heart sounds - Abdominal Exam Abdominal exam: Present: soft. Absent: distention, tenderness - Extremities Exam Extremities exam: Present: other (Contracture right hand) - Neurological Exam Neurological exam: Present: alert - Expanded Neurological Exam Comment: Severe expressive a aphasia. Right hemiparesis. Cannot raise right arm against gravity. Can raise right leg against gravity without drift. No facial asymmetry noted. - Psychiatric Psychiatric exam: Present: normal affect - Skin Skin exam: Present: warm, dry
[2018-07-26 10:27] LABS: Basophils # 0.1 K/mm3 (0-0.2); Basophils % 0.7 % (0.1-2.0); Eosinophils # 0.2 K/mm3 (0.0-0.4); Eosinophils % 2.9 % (0.1-12.0); Hematocrit 28.7 % (42.0-52.0); Hemoglobin 9.8 g/dL (14.1-18.0); Lymphocytes # 1.5 K/mm3 (0.7-4.5); Mean Corpuscular Hemoglobin 29.8 pg (27.0-31.2); Mean Corpuscular Volume 87.8 fl (80-94); Mean Platelet Volume 7.7 fl (7.4-10.4); Monocytes # 0.6 K/mm3 (0.1-1.0); Monocytes % 8.9 % (1.7-9.3); Neutrophils # 4.8 K/mm3 (1.8-7.8); Neutrophils % 66.5 % (37.0-80.0); Platelet Count 308 K/mm3 (142-424); Red Blood Count 3.27 M/mm3 (4.60-6.20); Red Cell Distribution Width 13.1 % (11.5-17.5); White Blood Count 7.1 K/mm3 (4.8-10.8)
[2018-07-26 10:41] LABS: Albumin Level 3.7 gm/dL (3.4-5.0); Anion Gap 17.2 mEq/L (5-15); Bilirubin,Total 0.4 mg/dL (0.2-1.0); Calcium 8.6 mg/dL (8.5-10.1); Globulin 3.6 gm/dl (1.3-3.2); Potassium 4.2 mmoL/L (3.5-5.1); Total Protein,Serum 7.3 gm/dL (6.4-8.2)
--- NOTE | 2018-07-26 13:23 | Pharmacy Consult Notes ---
[facility] Pharm[facility] VTE Monitoring - Patient Demographics Admission date: 07/26/18 Report Date: 07/26/18 Time: 13:22 Allergies/Adverse Reactions: Patient Allergies dopamine [DOPAMINE] Allergy (Mild, Verified 03/27/17 10:57) Height: 1.78 m Weight: 65.771 kg Patient Problems: Current Active Problems (Updated 07/26/18 @ 12:56 by Ab Estrada MD) Hyponatremia (Acute) Acute renal failure (Acute) Dehydration (Acute) - VTE Risk Labs: VTE Related Lab Results Hgb 9.8 g/dL (14.1-18.0) L 07/26/18 09:55 Hct 28.7 % (42.0-52.0) L 07/26/18 09:55 Plt Count 308 K/mm3 (142-424) 07/26/18 09:55 BUN 19 mg/dL (7-18) H 07/26/18 09:55 Creatinine 2.51 mg/dL (0.70-1.30) H D 07/26/18 09:55 Estimated Creat Clear 26 mL/min (50-200) 07/26/18 09:55 Clinical Trial Participant: No - Prophylaxis VTE Prophylaxis Ordered?: Yes Types of VTE Prophylaxis: TEDS Knee High
--- NOTE | 2018-07-26 14:41 | History & Physical Report ---
*Admission Date: 07/26/18 <Roseanna Sultana - 07/26/18 15:57> *Chief complaint: fall at home <Roseanna Sultana - 07/26/18 15:57> *History of present illness: Mr. 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 He is very difficult to understand due to expressive aphasia from his stroke. He was apparently seen in the emergency room yesterday for double vision and possibly increased weakness. He had a work-up including a CT which showed his prior CVA but nothing acute. His daughter was contacted during yesterday's visit and indicated that he gets like this when he has anxiety. He was therefore discharged back home. According to the ER physician, he had a administrative dietitian with him in the emergency room today. He was transported by ambulance because he was "not himself" this morning. According to the ER note, his speech was not as good as it normally is and he had a fall at home. The patient states today that his right-sided weakness is no worse than normal. He states that he walks with a cane. He has had double vision for a few days and has not been eating and drinking well. He had a repeat head CT in the emergency room today which showed his old CVA but nothing acute. He was found on lab work to be anemic, to have hyponatremia, and to have renal insufficiency. The [facility] was contacted to transfer the patient for admission, however there were no beds available. He will be admitted at [facility] for further evaluation and treatment. <Deacon Sultanaa - 07/26/18 15:57> [facility] History Medical History: Reports:: Atherosclerotic Heart Disease, Cancer (testicular), Cardiomyopathy, Congestive Heart Failure, Chronic Obstructive Pulmonary Disease (COPD), Coronary Artery Disease, Cerebrovascular Accident, Gastroesophageal Reflux Disease(GERD), Gastrointestinal Bleed, Hepatitis (C), Hyperlipidemia, Hypertension, Internal Pacemaker, Lung Disease, Kidney Stones, Myocardial Infarction, Renal Insufficiency, Seizures Denies:: Diabetes Mellitus Type 1, Diabetes Mellitus Type 2, MRSA <Roseanna Sultana 07/26/18 15:57> *Have you ever received a pneumonia vaccine?: Yes <Roseanna Sultana 07/26/18 15:57> *Have you received a flu vaccine this season?: Yes <Roseanna Sultana 07/26/18 15:57> Other Medical History: Denies: Blood Transfusion Reaction <Roseanna Sultana 07/26/18 15:57> Other Surgeries: Yes: Appendectomy, Pacemaker <Roseanna Sultana 07/26/18 15:57> Amputation: No <Roseanna Sultana 07/26/18 15:57> Fractures: No <Roseanna Sultana 07/26/18 15:57> Comment: Colorectal cancer removed <Roseanna Sultana 07/26/18 15:57> - *Social History Educational Level: Completed High School <Roseanna Sultana 07/26/18 15:57> Smoking Status: Never smoker <Roseanna Sultana 07/26/18 15:57> Alcohol Intake: never <Roseanna Sultana 07/26/18 15:57> Alcohol Intake Frequency:: holidays/special occasions only <Roseanna Sultana 07/26/18 15:57> Substance Use Type: unknown <Roseanna Sultana 07/26/18 15:57> Last Used Substance: unknown <Roseanna Sultana 07/26/18 15:57> *Occupational Status:: disabled <Roseanna Sultana 07/26/18 15:57> Housing: house <Roseanna Sultana 07/26/18 15:57> Household Members: caregiver <Roseanna Sultana 07/26/18 15:57> *Travel in the last 8 weeks: None <Roseanna Sultana 07/26/18 15:57> - Psychiatric History Expresses thoughts of harming self/others: None <Roseanna Sultana 07/26/18 1 5:57> Suicide Plan Description: No Plan <Roseanna Sultana 07/26/18 15:57> Family Hx:: Diabetes <Roseanna Sultana 07/26/18 15:57> Review of Systems - Constitutional Reports weakness, Denies chills, Denies fever(s) <Roseanna Sultana 07/26/18 15: 57> - Eyes Reports double vision, Denies blurry vision <Roseanna Sultana 07/26/18 15:57> - ENT Denies nasal congestion, Denies sore throat, Denies dizziness <[facility] 07/26/18 15:57> - *Cardiovascular Denies chest pain, Denies leg swelling, Denies rapid, pounding, or irregular heartbeat <[facility] 07/26/18 15:57> - *Respiratory Denies chest congestion, Denies cough, Denies shortness of breath <[facility]/26[facility] 15:57> - *Gastrointestinal Denies abdominal pain, Denies loose stools, Denies nausea, Denies vomiting <[facility] 07/26/18 15:57> - *Genitourinary Denies difficulty urinating, Denies painful urination <[facility] 07/26/18 15:57> - *Musculoskeletal Reports muscle weakness, Denies joint pain <[facility] 07/26/18 15:57> - *Neurologic Reports weakness, Denies confusion, Denies headache(s), Denies dizziness <[facility] 07/26/18 15:57> Meds Home Medications Medication Instructions Recorded Confirmed Type Ascorbic Acid [Vitamin C] 500 mg PO DAILY 03/27/17 07/26/18 History Aspirin [Aspir 81] 81 mg PO DAILY 03/27/17 07/26/18 History Carvedilol [Carvedilol 25mg Tab] 12.5 mg PO DAILY 03/27/17 07/26/18 History Cholecalciferol (Vitamin D3) 1,000 unit PO DAILY 03/27/17 07/26/18 History [Vitamin D3 1,000 Unit Cap] Ferrous Gluconate [Ferrous 324 mg PO DAILY 03/27/17 07/26/18 History Gluconate 324mg Tab] Gabapentin [Gabapentin 400mg Cap] 400 mg PO BID 03/27/17 07/26/18 History Lisinopril [Lisinopril 10mg Tab] 5 mg PO DAILY 03/27/17 07/26/18 History PHENobarbital [Phenobarbital] 64.8 mg PO DAILY 03/27/17 07/26/18 History Pantoprazole Sodium [Pantoprazole 40 mg PO DAILY 03/27/17 07/26/18 History 20mg Tab] Simvastatin 20 mg PO HS 03/27/17 07/26/18 History Zonisamide 300 mg PO HS 03/27/17 07/26/18 History OXcarbazepine [Trileptal] 450 mg PO BID 03/28/17 07/26/18 History <Vargas Hurt - 07/26/18 17:34> Allergies Allergy/AdvReac Type Severity Reaction Status Date / Time dopamine [DOPAMINE] Allergy Mild Verified 03/27/17 10:57 <Vargas Hurt - 07/26/18 17:34> Exam Vital signs and Labs for Last 24 Hours: Temp Pulse Resp BP Pulse Ox 97.8 F 75 18 90/55 L 98 07/26/18 13:46 07/26/18 13:46 07/26/18 13:46 07/26/18 13:46 07/26/18 13:46 Laboratory Results - last 24 hr 07/26/18 09:55: WBC 7.1, RBC 3.27 L, Hgb 9.8 L, Hct 28.7 L, MCV 87.8, MCH 29.8, MCHC 34.0, RDW 13.1, Plt Count 308, MPV 7.7, Neut % (Auto) 66.5, Lymph % (Auto) 21.0, [place] % (Auto) 8.9, Eos % (Auto) 2.9, Baso % (Auto) 0.7, Neut # (Auto) 4.8, Lymph # (Auto) 1.5, [place] # (Auto) 0.6, Eos # (Auto) 0.2, Baso # (Auto) 0.1 07/26/18 09:55: Sodium 127 L, Potassium 4.2, Chloride 93 L, Carbon Dioxide 21, Anion Gap 17.2 H, BUN 19 H, Creatinine 2.51 H D, Estimated Creat Clear 26, Estimated GFR 26 L, Est GFR ( Amer) 31 L D, Glucose 81 D, Calcium 8.6, Total Bilirubin 0.4, AST 10 L, ALT 16, Alkaline Phosphatase 105, Total Protein 7.3, Albumin 3.7, Globulin 3.6 H, Albumin/Globulin Ratio 1.0 L 07/26/18 09:55: Troponin I < 0.02 <Vargas Hurt - 07/26/18 17:34> Temp Pulse Resp BP Pulse Ox 97.8 F 75 18 90/55 L 98 07/26/18 13:46 07/26/18 13:46 07/26/18 13:46 07/26/18 13:46 07/26/18 13:46 Laboratory Results - last 24 hr 07/26/18 09:55: WBC 7.1, RBC 3.27 L, Hgb 9.8 L, Hct 28.7 L, MCV 87.8, MCH 29.8, MCHC 34.0, RDW 13.1, Plt Count 308, MPV 7.7, Neut % (Auto) 66.5, Lymph % (Auto) 21.0, [place] % (Auto) 8.9, Eos % (Auto) 2.9, Baso % (Auto) 0.7, Neut # (Auto) 4.8, Lymph # (Auto) 1.5, [place] # (Auto) 0.6, Eos # (Auto) 0.2, Baso # (Auto) 0.1 07/26/18 09:55: Sodium 127 L, Potassium 4.2, Chloride 93 L, Carbon Dioxide 21, Anion Gap 17.2 H, BUN 19 H, Creatinine 2.51 H D, Estimated Creat Clear 26, Estimated GFR 26 L, Est GFR ( Amer) 31 L D, Glucose 81 D, Calcium 8.6, Total Bilirubin 0.4, AST 10 L, ALT 16, Alkaline Phosphatase 105, Total Protein 7.3, Albumin 3.7, Globulin 3.6 H, Albumin/Globulin Ratio 1.0 L 07/26/18 09:55: Troponin I < 0.02 <Roseanna Sultana - 07/26/18 15:57> I & O for Last 24 hours: Intake & Output 07/24/18 07/25/18 07/26/18 07/27/18 11:59 11:59 11:59 11:59 Intake Total 1000 / 1000 Balance 1000 / 1000 Weight 145 lb 140 lb 9 oz <Vargas Hurt - 07/26/18 17:34> Intake & Output 07/24/18 07/25/18 07/26/18 07/27/18 11:59 11:59 11:59 11:59 Intake Total 1000 / 1000 Balance 1000 / 1000 Weight 145 lb 140 lb 9 oz <Roseanna Sultana 07/26/18 15:57> - Constitutional no acute distress (expressive aphasia) <[facility] 07/26/18 15:57> - *Routine HEENT Exam Head: Present: normocephalic <[facility] 07/26/18 15:57> Eye: Present: EOMI, PERRL <[facility] 07/26/18 15:57> ENT: Present: mucous membranes dry <[facility] 07/26/18 15:57> - *Routine Neck Exam Present: supple, full ROM. Absent: carotid bruit, lymphadenopathy <[facility] 07/26/18 15:57> - *Routine Respiratory Exam Present: CTA bilaterally <[facility] 07/26/18 15:57> - *Routine Cardiovascular Exam Present: RRR <[facility] 07/26/18 15:57> - *Routine Abdominal Exam Present: soft, normoactive bowel sounds. Absent: tenderness <[facility] 07/26/18 15:57> - *Routine Extremities Exam Absent: cyanosis, clubbing, edema <[facility] 07/26/18 15:57> - *Routine Skin Exam Present: warm. Absent: rash <[facility] 07/26/18 15:57> - *Routine Neurological Exam Present: alert, oriented X3, motor deficit (right sided weakness from previous CVA) <[facility] 07/26/18 15:57> H&P: Result - Impressions Head CT - nothing acute [facility] 07/26/18 15:57> Assessment and Plan (1) Weakness Current visit: No Status: Acute Category: Medical Code(s): R53.1 - Weakness (2) Renal insufficiency Current visit: Yes Status: Acute Category: Medical Code(s): N28.9 - Disorder of kidney and ureter, unspecified (3) Dehydration Current visit: Yes Status: Acute Category: Medical Code(s): E86.0 - Dehydration (4) Hyponatremia Current visit: Yes Status: Acute Category: Medical Code(s): E87.1 - Hypo- osmolality and hyponatremia (5) Anxiety Current visit: No Status: Chronic Category: Medical Code(s): F41.9 - Anxiety disorder, unspecified (6) Cardiomyopathy Current visit: No Status: Chronic Category: Medical Code(s): I42.9 - Cardiomyopathy, unspecified (7) Chronic anemia Current visit: No Status: Chronic Category: Medical Code(s): D64.9 - Anemia, unspecified (8) History of CVA (cerebrovascular accident) Current visit: No Status: Chronic Category: Medical Code(s): Z86.73 - Personal history of transient ischemic attack (TIA), and cerebral infarction without residual deficits (9) CAD (coronary artery disease) Current visit: No Status: Chronic Category: Medical Code(s): I25.10 - Atherosclerotic heart disease of [place] ronary artery without angina pectoris (10) History of GI bleed Current visit: No Status: Chronic Category: Medical Code(s): Z87.19 - Personal history of other diseases of the digestive system (11) History of seizure Current visit: No Status: Chronic Category: Medical Code(s): Z87.898 - Personal history of other specified conditions (12) Right hemiplegia Current visit: No Status: Chronic Category: Medical Code(s): G81.91 - Hemiplegia, unspecified affecting right dominant side <Roseanna Sultana - 07/26/18 14:37> (1) Acute renal insufficiency Current visit: Yes Status: Acute Category: Medical Code(s): N28.9 - Disorder of kidney and ureter, unspecified (2) Dehydration Current visit: Yes Status: Acute Category: Medical Code(s): E86.0 - Dehydration (3) Hyponatremia Current visit: Yes Status: Acute Category: Medical Code(s): E87.1 - Hypo-osmolality and hyponatremia (4) Weakness Current visit: No Status: Acute Category: Medical Code(s): R53.1 - Weakness (5) Anxiety Current visit: No Status: Chronic Category: Medical Code(s): F41.9 - Anxiety disorder, unspecified (6) Cardiomyopathy Current visit: No Status: Chronic Category: Medical Code(s): I42.9 - Cardiomyopathy, unspecified (7) Chronic anemia Current visit: No Status: Chronic Category: Medical Code(s): D64.9 - Anemia, unspecified (8) History of CVA (cerebrovascular accident) Current visit: No Status: Chronic Category: Medical Code(s): Z86.73 - Personal history of transient ischemic attack (TIA), and cerebral infarction without residual deficits (9) CAD (coronary artery disease) Current visit: No Status: Chronic Category: Medical Code(s): I25.10 - Atherosclerotic heart disease of [place] coronary artery without angina pectoris (10) History of GI bleed Current visit: No Status: Chronic Category: Medical Code(s): Z87.19 - Personal history of other diseases of the digestive system (11) History of seizure Current visit: No Status: Chronic Category: Medical Code(s): Z87.898 - Personal history of other specified conditions (12) Right hemiplegia Current visit: No Status: Chronic Category: Medical Code(s): G81.91 - Hemiplegia, unspecified affecting right dominant side <Vargas Hurt - 07/26/18 17:34> - Assessment and plan all Dx Assessment and Plan for all problems:: Patient is seen and examined and chart reviewed. In reviewing old labs from previous admissions and ER visits, he does have acute renal insufficiency and hyponatremia. His anemia does appear to be chronic. Concur with IV fluids. His hemoglobin likely will drop due to dilution from hydration. We will monitor his renal function, electrolytes, and hemoglobin closely. <Vargas Hurt - 07/26/18 17:34> Patient has been started on some of his home medications as well as IVF's. Will recheck labs tomorrow. <Roseanna Sultana - 07/26/18 15:57>
[2018-07-27 07:46] LABS: Basophils % 0.7 % (0.1-2.0); Eosinophils # 0.2 K/mm3 (0.0-0.4); Eosinophils % 2.7 % (0.1-12.0); Hematocrit 27.6 % (42.0-52.0); Hemoglobin 9.2 g/dL (14.1-18.0); Lymphocytes # 0.9 K/mm3 (0.7-4.5); Lymphocytes % 16.3 % (10-50); Mean Corpuscular HGB Conc 33.4 g/dL (31.8-35.4); Mean Corpuscular Hemoglobin 29.9 pg (27.0-31.2); Mean Corpuscular Volume 89.5 fl (80-94); Mean Platelet Volume 8.5 fl (7.4-10.4); Monocytes # 0.4 K/mm3 (0.1-1.0); Monocytes % 7.3 % (1.7-9.3); Neutrophils % 72.9 % (37.0-80.0); Platelet Count 261 K/mm3 (142-424); Red Blood Count 3.09 M/mm3 (4.60-6.20); Red Cell Distribution Width 13.2 % (11.5-17.5); White Blood Count 5.5 K/mm3 (4.8-10.8)
[2018-07-27 08:00] LABS: Anion Gap 13.2 mEq/L (5-15); Calcium 8.4 mg/dL (8.5-10.1); Potassium 4.2 mmoL/L (3.5-5.1)
--- NOTE | 2018-07-27 08:34 | Progress Note ---
Internal Medicine - PN: Subj *Date: 07/27/18 *Time: 08:31 Interval history: No new complaints this morning. States he rested well through the night. He is eating okay. He has not been out of bed. He reports that he gets around with a 4 prong cane at home. Exam Vital signs and Labs for Last 24 Hours: Temp Pulse Resp BP Pulse Ox 98.0 F 74 17 127/48 L 96 07/27/18 07:54 07/27/18 07:54 07/27/18 07:54 07/27/18 07:54 07/27/18 07:54 Laboratory Results - last 24 hr 07/26/18 09:55: WBC 7.1, RBC 3.27 L, Hgb 9.8 L, Hct 28.7 L, MCV 87.8, MCH 29.8, MCHC 34.0, RDW 13.1, Plt Count 308, MPV 7.7, Neut % (Auto) 66.5, Lymph % (Auto) 21.0, [place] % (Auto) 8.9, Eos % (Auto) 2.9, Baso % (Auto) 0.7, Neut # (Auto) 4.8, Lymph # (Auto) 1.5, [place] # (Auto) 0.6, Eos # (Auto) 0.2, Baso # (Auto) 0.1 07/26/18 09:55: Sodium 127 L, Potassium 4.2, Chloride 93 L, Carbon Dioxide 21, Anion Gap 17.2 H, BUN 19 H, Creatinine 2.51 H D, Estimated Creat Clear 26, Estimated GFR 26 L, Est GFR ( Amer) 31 L D, Glucose 81 D, Calcium 8.6, Total Bilirubin 0.4, AST 10 L, ALT 16, Alkaline Phosphatase 105, Total Protein 7.3, Albumin 3.7, Globulin 3.6 H, Albumin/Globulin Ratio 1.0 L 07/26/18 09:55: Troponin I < 0.02 07/27/18 06:05: Sodium 137, Potassium 4.2, Chloride 105, Carbon Dioxide 23, Anion Gap 13.2, BUN 15, Creatinine 1.63 H D, Estimated Creat Clear 40, Estimated GFR 42 L, Est GFR ( Amer) 51 L D, Glucose 106 D, Calcium 8.4 L 07/27/18 06:05: WBC 5.5, RBC 3.09 L, Hgb 9.2 L, Hct 27.6 L, MCV 89.5, MCH 29.9, MCHC 33.4, RDW 13.2, Plt Count 261, MPV 8.5, Neut % (Auto) 72.9, Lymph % (Auto) 16.3, [place] % (Auto) 7.3, Eos % (Auto) 2.7, Baso % (Auto) 0.7, Neut # (Auto) 4.0, Lymph # (Auto) 0.9, [place] # (Auto) 0.4, Eos # (Auto) 0.2, Baso # (Auto) 0.0 I & O for Last 24 hours: Intake & Output 07/24/18 07/25/18 07/26/18 07/27/18 11:59 11:59 11:59 11:59 Intake Total 2550 / 2550 Output Total 1050 / 1050 Balance 1500 / 1500 Weight 145 lb 142 lb 2 oz Narrative: He is alert and oriented. Expressive a aphasia unchanged. Lungs are clear to auscultation. Heart is regular with no ectopy. Abdomen is soft and nondistended with no masses or tenderness. Extremities no edema. Assessment and Plan (1) Acute renal insufficiency Current visit: Yes Status: Acute Category: Medical Code(s): N28.9 - Disorder of kidney and ureter, unspecified (2) Dehydration Current visit: Yes Status: Acute Category: Medical Code(s): E86.0 - Dehydration (3) Hyponatremia Current visit: Yes Status: Acute Category: Medical Code(s): E87.1 - Hypo- osmolality and hyponatremia (4) Weakness Current visit: No Status: Acute Category: Medical Code(s): R53.1 - We akness (5) Anxiety Current visit: No Status: Chronic Category: Medical Code(s): F41.9 - Anxiety disorder, unspecified (6) Cardiomyopathy Current visit: No Status: Chronic Category: Medical Code(s): I42.9 - Cardiomyopathy, unspecified (7) Chronic anemia Current visit: No Status: Chronic Category: Medical Code(s): D64.9 - Anemia, unspecified (8) History of CVA (cerebrovascular accident) Current visit: No Status: Chronic Category: Medical Code(s): Z86.73 - Personal history of transient ischemic attack (TIA), and cerebral infarction without residual deficits (9) Right hemiplegia Current visit: No Status: Chronic Category: Medical Code(s): G81.91 - Hemiplegia, unspecified affecting right dominant side (10) CAD (coronary artery disease) Current visit: No Status: Chronic Category: Medical Code(s): I25.10 - Atherosclerotic heart disease of [place] coronary artery without angina pectoris (11) History of GI bleed Current visit: No Status: Chronic Category: Medical Code(s): Z87.19 - Personal history of other diseases of the digestive system (12) History of seizure Current visit: No Status: Chronic Category: Medical Code(s): Z87.898 - Personal history of other specified conditions - Assessment and plan all Dx Assessment and Plan for all problems:: Renal function has improved with hydration. Hemoglobin remains low but stable. Continue IV hydration. Up in chair today.
[2018-07-28 07:26] LABS: Basophils % 0.7 % (0.1-2.0); Eosinophils # 0.2 K/mm3 (0.0-0.4); Eosinophils % 4.1 % (0.1-12.0); Hematocrit 25.5 % (42.0-52.0); Hemoglobin 8.8 g/dL (14.1-18.0); Lymphocytes # 0.9 K/mm3 (0.7-4.5); Lymphocytes % 22.4 % (10-50); Mean Corpuscular HGB Conc 34.5 g/dL (31.8-35.4); Mean Corpuscular Hemoglobin 31.1 pg (27.0-31.2); Mean Corpuscular Volume 90.2 fl (80-94); Mean Platelet Volume 7.5 fl (7.4-10.4); Monocytes # 0.3 K/mm3 (0.1-1.0); Monocytes % 6.5 % (1.7-9.3); Neutrophils # 2.8 K/mm3 (1.8-7.8); Neutrophils % 66.3 % (37.0-80.0); Platelet Count 211 K/mm3 (142-424); Red Blood Count 2.82 M/mm3 (4.60-6.20); Red Cell Distribution Width 13.2 % (11.5-17.5); White Blood Count 4.2 K/mm3 (4.8-10.8)
[2018-07-28 07:53] LABS: Anion Gap 12.9 mEq/L (5-15); Calcium 8.2 mg/dL (8.5-10.1); Potassium 3.9 mmoL/L (3.5-5.1)
--- NOTE | 2018-07-28 10:43 | Progress Note ---
Internal Medicine - PN: Subj *Date: 07/28/18 *Time: 11:36 Interval history: He rested well last night. He has been up in the chair and ambulating in the room without difficulty. Appetite has been good. No complaints of chest pain, shortness of breath, nausea, vomiting, or abdominal pain. He is eager to go home. Exam Vital signs and Labs for Last 24 Hours: Temp Pulse Resp BP Pulse Ox 98.6 F 79 18 137/63 97 07/28/18 08:00 07/28/18 08:00 07/28/18 08:00 07/28/18 08:00 07/28/18 08:00 Laboratory Results - last 24 hr 07/28/18 06:20: WBC 4.2 L, RBC 2.82 L, Hgb 8.8 L, Hct 25.5 L, MCV 90.2, MCH 31.1, MCHC 34.5, RDW 13.2, Plt Count 211, MPV 7.5, Neut % (Auto) 66.3, Lymph % (Auto) 22.4, [place] % (Auto) 6.5, Eos % (Auto) 4.1, Baso % (Auto) 0.7, Neut # (Auto) 2.8, Lymph # (Auto) 0.9, [place] # (Auto) 0.3, Eos # (Auto) 0.2, Baso # (Auto) 0.0 07/28/18 06:20: Sodium 138, Potassium 3.9, Chloride 107, Carbon Dioxide 22, Anion Gap 12.9, BUN 11 D, Creatinine 1.10 D, Estimated Creat Clear 61, Estimated GFR 67, Est GFR ( Amer) 81 D, Glucose 95, Calcium 8.2 L I & O for Last 24 hours: Intake & Output 07/25/18 07/26/18 07/27/18 07/28/18 11:59 11:59 11:59 11:59 Intake Total 2550 / 2550 2543 / 2543 Output Total 1050 / 1050 1950 / 1950 Balance 1500 / 1500 593 / 593 Weight 145 lb 142 lb 2 oz 148 lb Narrative: Alert and oriented. Expressive a aphasia unchanged. Lungs are clear to auscultation. Heart is regular with no murmurs or ectopy. Abdomen soft and nondistended with no masses or tenderness. Extremities no edema. Assessment and Plan (1) Acute renal insufficiency Current visit: Yes Status: Acute Category: Medical Code(s): N28.9 - Disorder of kidney and ureter, unspecified (2) Dehydration Current visit: Yes Status: Acute Category: Medical Code(s): E86.0 - Dehydration (3) Hyponatremia Current visit: Yes Status: Acute Category: Medical Code(s): E87.1 - Hypo- osmolality and hyponatremia (4) Weakness Current visit: No Status: Acute Category: Medical Code(s): R53.1 - Weakness (5) Anxiety Current visit: No Status: Chronic Category: Medical Code(s): F41.9 - Anxiety disorder, unspecified (6) Cardiomyopathy Current visit: No Status: Chronic Category: Medical Code(s): I42.9 - Cardiomyopathy, unspecified (7) Chronic anemia Current visit: No Status: Chronic Category: Medical Code(s): D64.9 - Anemia, unspecified (8) History of CVA (cerebrovascular accident) Current visit: No Status: Chronic Category: Medical Code(s): Z86.73 - Personal history of transient ischemic attack (TIA), and cerebral infarction without residual deficits (9) Right hemiplegia Current visit: No Status: Chronic Category: Medical Code(s): G81.91 - Hemiplegia, unspecified affecting right dominant side (10) CAD (coronary artery disease) Current visit: No Status: Chronic Category: Medical Code(s): I25.10 - Atherosclerotic heart disease of [place] coronary artery without angina pectoris (11) History of GI bleed Current visit: No Status: Chronic Category: Medical Code(s): Z87.19 - Personal history of other diseases of the digestive system (12) History of seizure Current visit: No Status: Chronic Category: Medical Code(s): Z87.898 - Personal history of other specified conditions - Assessment and plan all Dx Assessment and Plan for all problems:: His renal function and hyponatremia have improved. Hemoglobin has decreased some as expected with the hydration. [facility] is known to have chronic [facility] He is stable for discharge home. He will be continued on his same medications at home and instructed [facility] within the next 1 to 2 weeks.
--- NOTE | 2018-07-30 13:19 | Discharge Summary ---
General - General Admission date:: 07/26/18 <Vargas Hurt - 08/18/18 22:28> 07/26/18 <CarrollRoseanna marks - 07/30/18 13:21> Discharge date: 07/28/18 <CarrollRoseanna marks - 07/30/18 13:21> HPI HPI: Mr. 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 He is very difficult to understand due to expressive aphasia from his stroke. He was apparently seen in the emergency room yesterday for double vision and possibly increased weakness. He had a work-up including a CT which showed his prior CVA but nothing acute. His daughter was contacted during yesterday's visit and indicated that he gets like this when he has anxiety. He was therefore discharged back home. According to the ER physician, he had a sharepoint engineer with him in the emergency room today. He was transported by ambulance because he was "not himself" this morning. According to the ER note, his speech was not as good as it normally is and he had a fall at home. The patient states today that his right-sided weakness is no worse than normal. He states that he walks with a cane. He has had double vision for a few days and has not been eating and drinking well. He had a repeat head CT in the emergency room today which showed his old CVA but nothing acute. He was found on lab work to be anemic, to have hyponatremia, and to have renal insufficiency. The [facility] was contacted to transfer the patient for admission, however there were no beds available. He will be admitted at [facility] for further evaluation and treatment. <CarrollDeacon marksa - 07/30/18 13:21> Hospital Course Hospital Course: The patient's head CT showed nothing acute. He was admitted and started on IV fluids. In reviewing all labs from previous admissions and ER visits, he did have acute renal insufficiency and hyponatremia as well as chronic anemia. The patient rested well and was eating well. His renal function improved with hydration and his hemoglobin remained low but stable. IV hydration was continued. He was encouraged to get up out of bed. The patient was able to get up in a chair and ambulate in the room without difficulty. He had no complaints and wanted to go home. His sodium normalized and his renal function improved. His hemoglobin did decrease as was expected with hydration. He was stable to be discharged home on his same home medications and [facility] 1 [facility] 2 weeks. <Roseanna Sultana - 07/30/18 13:21> Objective Vital signs: Temp Pulse Resp BP Pulse Ox 98.5 F 80 18 135/78 96 07/28/18 15:18 07/28/18 15:18 07/28/18 15:18 07/28/18 15:18 07/28/18 15:18 <Vargas Hurt - 08/18/18 22:28> Temp Pulse Resp BP Pulse Ox 98.5 F 80 18 135/78 96 07/28/18 15:18 07/28/18 15:18 07/28/18 15:18 07/28/18 15:18 07/28/18 15:18 <Roseanna Sultana - 07/30/18 13:21> Narrative: Alert and oriented. Expressive a aphasia unchanged. Lungs are clear to auscultation. Heart is regular with no murmurs or ectopy. Abdomen soft and nondistended with no masses or tenderness. Extremities no edema. <Roseanna Sultana 07/30/18 13:21> DS: Diagnosis - Discharge Diagnosis (1) Acute renal insufficiency Status: Acute (2) Dehydration Status: Acute (3) Hyponatremia Status: Acute (4) Weakness Status: Acute (5) Anxiety Status: Chronic (6) Cardiomyopathy Status: Chronic (7) Chronic anemia Status: Chronic (8) History of CVA (cerebrovascular accident) Status: Chronic (9) Right hemiplegia Status: Chronic (10) CAD (coronary artery disease) Status: Chronic (11) History of GI bleed Status: Chronic (12) History of seizure Status: Chronic <Roseanna Sultana 07/30/18 13:15> (1) Acute renal insufficiency Status: Acute (2) Dehydration Status: Acute (3) Hyponatremia Status: Acute (4) Weakness Status: Acute (5) Anxiety Status: Chronic (6) Cardiomyopathy Status: Chronic (7) Chronic anemia Status: Chronic (8) History of CVA (cerebrovascular accident) Status: Chronic (9) Right hemiplegia Status: Chronic (10) CAD (coronary artery disease) Status: Chronic (11) History of GI bleed Status: Chronic (12) History of seizure Status: Chronic <LichaVargas Emigdio - 08/18/18 22:28> Discharge Plan - Patient Discharge Instructions ACTIVITY: Continue current activity <RdRoseanna - 07/30/18 13:21> DIET: continue same diet <Roseanna Sultana - 07/30/18 13:21> Patient Instructions: Dehydration, DI for Dehydration -- Adult, Hyponatremia- Adult <Licha,Vargas Emigdio - 08/18/18 22:28> Forms: <Vargas Hurt - 08/18/18 22:28> - Follow up Plan Follow up with: <Vargas Hurt - 08/18/18 22:28> Disposition: Home, Self-Care <Vargas Hutr - 08/18/18 22:28> Home Medications: Home Medications Medication Instructions Recorded Confirmed Type Ascorbic Acid [Vitamin C] 500 mg PO DAILY 03/27/17 07/26/18 History Aspirin [Aspir 81] 81 mg PO DAILY 03/27/17 07/26/18 History Carvedilol [Carvedilol 25mg Tab] 12.5 mg PO DAILY 03/27/17 07/26/18 History Cholecalciferol (Vitamin D3) 1,000 unit PO DAILY 03/27/17 07/26/18 History [Vitamin D3 1,000 Unit Cap] Ferrous Gluconate [Ferrous 324 mg PO DAILY 03/27/17 07/26/18 History Gluconate 324mg Tab] Gabapentin [Gabapentin 400mg Cap] 400 mg PO BID 03/27/17 07/26/18 History Lisinopril [Lisinopril 10mg Tab] 5 mg PO DAILY 03/27/17 07/26/18 History PHENobarbital [Phenobarbital] 64.8 mg PO DAILY 03/27/17 07/26/18 History Pantoprazole Sodium [Pantoprazole 40 mg PO DAILY 03/27/17 07/26/18 History 20mg Tab] Simvastatin 20 mg PO HS 03/27/17 07/26/18 History Zonisamide 300 mg PO HS 03/27/17 07/26/18 History OXcarbazepine [Trileptal] 450 mg PO BID 03/28/17 07/26/18 History Lacosamide [Vimpat] 150 mg PO BID 07/27/18 07/27/18 History <Vargas Hurt - 08/18/18 22:28> Prescriptions/Medication Reconciliation: Continued Lisinopril [Lisinopril 10mg Tab] 5 mg PO DAILY Gabapentin [Gabapentin 400mg Cap] 400 mg PO BID Cholecalciferol (Vitamin D3) [Vitamin D3 1,000 Unit Cap] 1,000 unit PO DAILY Zonisamide 300 mg PO HS Simvastatin 20 mg PO HS PHENobarbital [Phenobarbital] 64.8 mg PO DAILY Carvedilol [Carvedilol 25mg Tab] 12.5 mg PO DAILY Aspirin [Aspir 81] 81 mg PO DAILY Ferrous Gluconate [Ferrous Gluconate 324mg Tab] 324 mg PO DAILY Ascorbic Acid [Vitamin C] 500 mg PO DAILY OXcarbazepine [Trileptal] 450 mg PO BID Pantoprazole Sodium [Pantoprazole 20mg Tab] 40 mg PO DAILY Lacosamide [Vimpat] 150 mg PO BID <Vargas Hurt - 08/18/18 22:28> - Additional Information Additional Information: Concur with plan for discharge as outlined above. <Vargas Hurt - 08/18/18 22:28>
== END 2018-07-28 16:28 | disposition home or self-care (01) ==
LOC: ER 09:46 → 2ND 09:46
PROVIDERS: ADMIT Family Medicine; ATTEND Family Medicine
DX: F41.9 Anxiety disorder, unspecified; R11.0 Nausea; E87.1 Hypo-osmolality and hyponatremia; Z79.82 Long term (current) use of aspirin; I25.10 Atherosclerotic heart disease of native coronary artery without angina pectoris; N17.9 Acute kidney failure, unspecified; R53.1 Weakness; I42.9 Cardiomyopathy, unspecified; Z88.8 Allergy status to other drugs, medicaments and biological substances; I25.2 Old myocardial infarction; E86.0 Dehydration; D64.9 Anemia, unspecified; R47.01 Aphasia; Z87.898 Personal history of other specified conditions; G81.91 Hemiplegia, unspecified affecting right dominant side; Z79.899 Other long term (current) drug therapy; Z87.19 Personal history of other diseases of the digestive system; Z85.038 Personal history of other malignant neoplasm of large intestine; Z86.79 Personal history of other diseases of the circulatory system
CPT/HCPCS: 70450; 80048; 80053; 84484; 85025; 93005; 96365; 99284; G0378

== ENCOUNTER 2019-06-29 13:04 | Emergency (ER) | payer MEDICARE, BC, OTHER, SELFPAY ==
[2019-06-29 13:16] VITALS: BP 128/70; PULSE 74; RESP 16; TEMP 36.6; O2SAT 99; BMI 25.0
--- NOTE | 2019-06-29 13:16 | PC.NURSE ---
Dr Schmidt at bedside
[2019-06-29 13:51] VITALS: BP 124/70; PULSE 74; RESP 16; TEMP 36.6; O2SAT 98
--- NOTE | 2019-06-29 14:12 | [facility].EDWNDL ---
ED Disposition Clinical Impression: Laceration of hand Disposition: Home, Self-Care Condition on Discharge: Good Instructions: DI for Laceration Repair Referrals: Provider,Referral, [Primary Care Provider] - - Critical Care Critical Care Time: No Attestation: On 06/29/19, the high probability of a clinically significant, sudden or life threatening deterioration of the following system(s) required my full and direct attention, intervention and personal management. The time I documented below is in addition to time spent performing reported procedures but includes the following listed in this critical care notation. Medical Decision Making - Medical Records Medical records reviewed: Yes: I reviewed the patient's medical records. - Mirza Inquiry Pt receiving controlled substance: No Vital Signs: 06/29/19 13:16 06/29/19 13:51 Temperature 97.9 F 98 F Temperature Source Oral Oral Pulse Rate 74 Pulse Rate [Right Brachial] 74 Respiratory Rate 16 16 Blood Pressure 124/70 Blood Pressure [Right Arm] 128/70 Blood Pressure Mean [Right Arm] 89 Blood Pressure Source [Right Arm] Automatic Cuff Blood Pressure Position Sitting Blood Pressure Position [Right Arm] Sitting 02 Sat by Pulse Oximetry 99 Oxygen Delivery Method Room Air Room Air - Lab Data Lab results reviewed: Yes: I reviewed the patient's lab results. Wound/Laceration HPI - General Chief Complaint: Wound/Laceration Stated Complaint: [id number] left hand thumb finger Time Seen by Provider: 06/29/19 13:04 Mode of Arrival: Wheelchair Limitations: Physical Limitations Description of Symptoms (Recalled from ER Triage Doc. by RN): Pt was trying to open a falcon can around noon and sliced the tip of his left thumb - History of Present Illness HPI narrative: A pleasant 68-year-old gentleman presents the ED after having a laceration to his left thumb. He was opening a can of been the [employer] and he cut his thumb on the serrated edge of the 10. He has states that he is got about a 1 to 2 cm laceration that is linear on the anterior part of the left thumb. Presently patient presented with his thumb wrapped in a bandage to assist with bleeding control. Patient denies any other trauma. Patient denies any other pain. Patient denies any other symptoms. - Related Data Home Medications Medication Instructions Recorded Confirmed Ascorbic Acid [Vitamin C] 500 mg PO DAILY 03/27/17 06/06/19 Aspirin [Aspir 81] 81 mg PO DAILY 03/27/17 06/06/19 Cholecalciferol (Vitamin D3) 1,000 unit PO DAILY 03/27/17 06/06/19 [Vitamin D3 1,000 Unit Cap] Ferrous Gluconate [Ferrous 324 mg PO DAILY 03/27/17 06/06/19 Gluconate 324mg Tab] Gabapentin [Gabapentin 400mg Cap] 400 mg PO BID 03/27/17 06/06/19 Pantoprazole Sodium [Pantoprazole 40 mg PO DAILY 03/27/17 06/06/19 20mg Tab] Simvastatin 20 mg PO HS 03/27/17 06/06/19 Zonisamide 300 mg PO HS 03/27/17 06/06/19 carvediloL [Carvedilol 25mg Tab] 12.5 mg PO DAILY 03/27/17 06/06/19 lisinopriL [Lisinopril 10mg Tab] 5 mg PO DAILY 03/27/17 06/06/19 OXcarbazepine [Trileptal] 450 mg PO BID 03/28/17 06/06/19 Lacosamide [Vimpat] 150 mg PO BID 07/27/18 06/06/19 Previous Rx's Medication Instructions Recorded predniSONE [Prednisone 50mg Tab] 50 mg PO DAILY #14 tab 06/06/19 Allergies Allergy/AdvReac Type Severity Reaction Status Date / Time dopamine [DOPAMINE] Allergy Mild Verified 06/29/19 13:22 [facility] History - Hepatitis A Screen Drug use history?: No High risk sexual behaviors?: No History of sexually transmitted infection?: No Currently employed?: No Childcare worker?: No Do you have indoor plumbing?: Yes Do you have electricity?: Yes Attestation statement:: This patient has been screened for Hepatitis A risk factors. I have reviewed the patient's past medical history: Yes Medical History: Reports:: Atherosclerotic Heart Disease, Cancer (testicular), Cardiomyopathy, Congestive Heart Failure
== END 2019-06-29 13:52 | disposition home or self-care (01) ==
PROVIDERS: Emergency Provider Family Medicine
DX: S61.412A Laceration without foreign body of left hand, initial encounter (principal); I25.10 Atherosclerotic heart disease of native coronary artery without angina pectoris; K21.9 Gastro-esophageal reflux disease without esophagitis; J44.9 Chronic obstructive pulmonary disease, unspecified; I10 Essential (primary) hypertension; E78.5 Hyperlipidemia, unspecified; Z95.0 Presence of cardiac pacemaker; Z79.899 Other long term (current) drug therapy
CPT/HCPCS: 12001; 99282